=== PATIENT | male | born 1985 | race Caucasian/White ===

== ENCOUNTER 2017-02-24 18:48 | Emergency (ER) | payer MEDICAID ==
--- NOTE | 2017-02-24 19:55 | ED Physician Chart ---
Chief Complaint/HPI - Patient Information Date Seen:: 02/24/17 Time Seen:: 19:15 Chief Complaint:: my right hand wall work right History of Present Illness:: Patient states that he was intoxicated with alcohol and marijuana and methamphetamine when he fell asleep on a bench today. Patient states that he was asleep for an unknown length of time With His arm under his body. When he woke the patient states that his right wrist and hand were weak and he cannot raise them or extend all of his fingers. The patient does not use IV methamphetamine but snorts it. He is homeless and this occurred in a local park. The patient denies headache, chest pain, prior episode of extremity numbness or weakness, IV drug use, fever chills or any other prodromal symptoms. Allergies:: Allergies Allergy/AdvReac Type Severity Reaction Status Date / Time No Known Allergies Allergy Verified 09/12/16 18:09 Vitals:: Vital Signs - 8 hr 02/24/17 19:04 Temp 98.2 F HR 84 RR 16 BP 128/98 O2 Sat % 97 Historian:: Patient Review:: Nurse's Note Reviewed Review of Systems - Review of Systems General/Constitutional: No fever (the entire review of systems is otherwise unremarkable) Past Medical History - Past Medical History Obtainable: Yes Past Medical History: No significant medical hx (drug and alcohol abuse) Social History: Smoker, Alcohol, Illicit Drug Use, Homeless Surgical History: None Medication: None Family Medical History - Family Member Mother History Unknown: Yes Ethnicity: Physical Exam - Physical Examination General/Constitutional: Awake (Physical exam: general: the patient is a 31-year- old thin, unkempt male lying quietly on the gurney in no apparent distress. HEENT exam is unremarkable. The neck is supple with no bruits or stridor. Chest exam is normal. Cardiac exam is entirely normal. There are no murmurs or extra cardiac sounds. Neuro exam: The patient is alert and oriented with normal speech, cognition, and he appears entirely cogent at the time of this exam. The patient's neurological exam is completely normal except for the right upper extremity which has an objective loss of wrist extension and weakness with extension of the digits of the hand. Neurological function is completely intact above the level of the wrist on the right side, and is entirely normal in all of the other extremities. Patient has normal deep tendon reflexes proximally, and there is no discoloration of the extremity nor unusual rashes.) Assessment - Assessment General Assessment: Assessment: #1 suspected right radial nerve compression palsy. We will observe patient in emergency room for progressive improvement. I do not suspect central nervous system pathology at this time. This condition life threatening/high prob of deterioration: No ED Septic Shock - . Is Septic Shock (SBP<90, OR Lactate>4 mmol\\L) present?: No - <6hrs of presentation: Vital Signs: Vital Signs - 8 hr 02/24/17 19:04 Temp 98.2 F HR 84 RR 16 BP 128/98 O2 Sat % 97 Reassessment (Disposition) - Reassessment Reassessment:: Patient was serially reassessed during his 2+ hours in the emergency room and showed a modest but definite improvement in the movement of his right wrist and hand. The patient expressed a desire to spend the night in the emergency room because "it was cold outside" but there is no emergency reason for this to occur. Patient was advised to seek clinic follow-up for persistent problems and to avoid the use of methamphetamine alcohol and marijuana. 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 2)Homelessness. - Aftercare/Follow up Instructions Aftercare/Follow-Up Instructions:: Counseled pt regarding lab results/diagnosis & need follow up ED Discharge Plan - Patient Disposition Admit/Discharge/Transfer: PT DISCHARGED HOME Condition at Disposition: Improved
[2017-02-24 20:19] VITALS: BP 128/98
== END 2017-02-24 21:25 | disposition home or self-care (01) ==
LOC: ER 18:48
DX: G56.31 Lesion of radial nerve, right upper limb (principal); F17.200 Nicotine dependence, unspecified, uncomplicated; Z59.0 Homelessness
CPT/HCPCS: Z7502

== ENCOUNTER 2017-03-10 08:44 | Emergency (ER) | payer MEDICAID ==
--- NOTE | 2017-03-10 09:55 | ED Physician Chart ---
Chief Complaint/HPI - Patient Information Date Seen:: 03/10/17 Time Seen:: 09:45 Chief Complaint:: RT HAND PAIN X History of Present Illness:: This 31-year-old male presents complaining of pain in the right hand. He has been seen previously at this facility with the same complaint. He rates the pain as a 6/10 in severity with no exacerbating or relieving factors. The patient is a very poor historian and it's difficult to get any information at all from him. The patient is also asking for soap and a hot shower. Also requesting hot food. When asked if homeless the patient is unable to elaborate. A review of the patient's chart from 02/24/2017 shows that the patient gave a history of alcohol and methamphetamine use. At that point in time he was complaining of pain in the right upper extremity. It further states that the patient is homeless. Allergies:: Allergies Allergy/AdvReac Type Severity Reaction Status Date / Time No Known Allergies Allergy Verified 03/10/17 09:03 Vitals:: Vital Signs - 8 hr 03/10/17 08:50 Temp 98.6 F HR 86 RR 16 BP 135/79 O2 Sat % 97 Review of Systems - Review of Systems General/Constitutional: No fever, No chills, No diaphoresis, No edema Skin: No skin lesions, No rash Head: No headache, Light headed Eyes: No loss of vision, No diplopia Neck: No neck pain, No stiffness Cardio Vascular: No chest pain Pulmonary: No SOB, No cough GI: No nausea, No vomiting, No diarrhea, No pain G/U: No dysuria, No frequency Musculoskeletal: Bone or joint pain (patient complaining of pain over the fifth metacarpal in his right hand.) Past Medical History - Past Medical History Social History: Alcohol, Illicit Drug Use, Single, Homeless Family Medical History - Family Member Mother History Unknown: Yes Ethnicity: Physical Exam - Physical Examination General/Constitutional: Well-developed, well-nourished, No distress, Ambulatory Head: Atraumatic Eyes: PERRL Skin: No rash, No skin lesions, No ecchymosis ENMT: TM canals nl, Lips, teeth, gums nl, Oropharynx nl, Tonsils nl Neck: Nontender, No JVD Respiratory: Nl effort/Exclusion, Clear to Auscultation, No Wheeze/Rhonchi/Rales Cardio Vascular: RRR, No murmur, gallop, rubs, NL S1 S2 GI: No tenderness/rebounding/guarding, Normal BS's, No McBurney tenderness : No CVA tenderness Extremities: Full ROM Other Extremities comments:: RT HAND EXAM: NO DEFORMITIES OF DIGITS, RIGHT HAND OR WRIST. NORMAL CAPILLARY REFILL. FULL PASSIVE ROM ALL DIGITS. NO SWELLING OR ERYTHEMA. Labs/Radiology/EKG Results - Lab Results Results: 3 VIEWS OF THE RT HAND AND WRIST: NO FRACTURES. NO DISLOCATIONS. NO SOFT TISSUE SWELLING. NO RADIO-OPAQUE FOREIGN BODIES. Assessment - Assessment General Assessment: CASE SUMMARY: this 31-year-old male presented to the emergency department complaining of pain in the right hand and wrist. The patient is sleeping on a gurney and is difficult to arouse. When he is aroused he is unable to provide a coherent history of the present illness. The patient was here on February 24 with a similar complaint after having fallen asleep on a park bench and intoxicated with alcohol and methamphetamine. On physical examination there were no deformities or evidence of acute injury to his right hand or wrist. Circulation was intact any had full range of motion of all joints. An x-ray of the right hand and wrist was negative for any acute trauma. The patient was requesting food and a hot shower. He received both of these. He then abruptly ELOPED from the emergency department prior to any aftercare instructions. Nursing personnel were unable to convince the patient to return for aftercare instructions. MDM DDX PAIN IN THE RIGHT HAND AND WRIST: NOT closed fracture based on exam and X-rays. NOT open fracture based on exam and x-rays. NOT ischemic hand injury based on examination. NOT acute infection based on exam of hand. ED Septic Shock - . Is Septic Shock (SBP<90, OR Lactate>4 mmol\L) present?: No - <6hrs of presentation: Vital Signs: Vital Signs - 8 hr 03/10/17 08:50 Temp 98.6 F HR 86 RR 16 BP 135/79 O2 Sat % 97 Reassessment (Disposition) - Reassessment Reassessment Condition:: Improved (more awake and ran from ED.) - Diagnosis Diagnosis:: POLY-DRUG AND ALCOHOL ABUSE. Pressure neuropathy of the right hand/wrist. - Patient Disposition Discharge/Transfer:: [facility] ED Discharge Plan - Patient Disposition Admit/Discharge/Transfer: PT DISCHARGED HOME Condition at Disposition: Stable Instructions: Hand Contusion, [id number]
--- NOTE | 2017-03-11 10:05 | Diagnostic Imaging Report ---
Right hand (3 views) HISTORY: Pain No acute bony abnormalities. No fractures. Joint spaces appear normal. IMPRESSION: 1. No acute abnormalities In the presence of recent trauma and persistent, a repeat radiograph in 5-7 days may be helpful for detection of a subtle or occult fracture.
== END 2017-03-10 12:20 | disposition home or self-care (01) ==
LOC: ER 08:44
DX: Z59.0 Homelessness (principal); F10.10 Alcohol abuse, uncomplicated; F19.10 Other psychoactive substance abuse, uncomplicated
CPT/HCPCS: 73130-TC-RT; Z7502

== ENCOUNTER 2017-06-24 15:15 | Emergency (ER) | payer MEDICAID ==
--- NOTE | 2017-06-24 15:40 | ED Physician Chart ---
ED Chief Complaint/HPI - Patient Information Date Seen:: 06/24/17 Time Seen:: 15:27 Chief Complaint:: Itchiness and discomfort in both feet for 2 days. History of Present Illness:: Pt walked in with the above complaint. No known injury or trauma to either foot. Pt remains ambulatory without difficulty. No weakness or numbness. Allergies:: Allergies Allergy/AdvReac Type Severity Reaction Status Date / Time No Known Allergies Allergy Verified 03/10/17 09:03 Vitals:: see Nurse Note. Historian:: Patient Family MD/PCP:: Unknown LMP:: N/A Review:: Nurse's Note Reviewed ED Review of Systems - Review of Systems General/Constitutional: No fever, No chills, No weight loss, No weakness, No edema Skin: Rash (in both feet.), No bruising, Other Head: No headache, No light-headedness Eyes: No loss of vision, No pain, No diplopia ENT: No earache, No nasal drainage, No sore throat Neck: No neck pain, No swelling, No stiffness, No mass noted Cardio Vascular: No chest pain, No palpitations, No edema Pulmonary: No SOB, No cough, No wheezing GI: No nausea, No vomiting, No diarrhea, No pain G/U: No dysuria, No frequency, No hematuria Musculoskeletal: No bone or joint pain, No back pain, No muscle pain Endocrine: No polyuria, No polydipsia Psychiatric: No prior psych history Hematopoietic: No bruising, No lymphadenopathy Allergic/Immuno: No urticaria, No angioedema Neurological: No syncope, No focal symptoms, No weakness, No paresthesia, No headache, No confusion ED Past Medical History - Past Medical History Past Medical History: No significant medical hx Family History: None Social History: Smoker (2 cigars daily. Pt has been informed about health risks associated with chronic tobacco use and has been advised to quit. Pt has been encouraged to enroll in a smoking cessation program. Pt acknowledges understanding.), Alcohol (one beer daily. Pt has been informed about health risks associated with chronic alcohol and has been advised to quit. Pt acknowledges understanding.), Illicit Drug Use (Methamphetamine and marijuana with last use yesterday. Pt has been informed about health risks associated with illiicit drug use and has been advised to quit. Pt has been encouraged to enroll in a drug rehab program. Pt acknowledges understanding.), Single Employment:: unemployed. Surgical History: None Family Medical History - Family Member Mother History Unknown: Yes Ethnicity: ED Physical Exam - Physical Examination General/Constitutional: Awake, Well-developed, well-nourished, Alert, No distress, GCS 15, Non-toxic appearing, Ambulatory Other Gen/Cons comments:: Breathes comfortably, speaks clearly, and ambulates without difficulty. Head: Atraumatic Eyes: Lids, conjuctiva normal, PERRL, EOMI Skin: Well hydrated Other Skin comments:: see also Extremities exam. ENMT: External ears, nose nl, Nasal exam nl, Lips, teeth, gums nl, Oropharynx nl Neck: Nontender, Full ROM w/o pain, No nuchal rigidity, No stridor Respiratory: Nl effort/Exclusion, Clear to Auscultation, No Wheeze/Rhonchi/Rales Cardio Vascular: RRR, No murmur, gallop, rubs GI: No tenderness/rebounding/guarding, No organomegaly, Normal BS's, Nondistended Other GI comments:: Abdomen is soft. Other Extremities comments:: Both feet: Nontender. There is a scaly rash noticed in interdigital areas with minimal erythema c/w tinea pedis. No open wound, crepitus, or swelling. FROM of all joints. No detectable motor/sensory/vascular deficit. Good distal capillary refill. Neuro/Psych: Alert/oriented (oriented x 3.), Mood normal, Normal gait, No focal deficits ED Septic Shock - . Is Septic Shock (SBP<90, OR Lactate>4 mmol\L) present?: No ED Reassessment (Disposition) - Reassessment Reassessment:: 1700 Pt remains stable. Pt has been ambulatory without difficulty. Pt requests to leave now. Aftercare instructions have been given. - Diagnosis Diagnosis:: Tinea pedis in both feet. Stable. - Aftercare/Follow up Instructions Aftercare/Follow-Up Instructions:: Refer to Discharge Instructions Notes:: Good hygiene instructions given for foot care. Keep both feet clean and dry. Wear open footwears as directed. F/U with Dr. Garrison or PCP of pt's choice in one day for recheck. Return to ER immediately if condition worsens or if any further questions/problems. Medication Prescribed:: Lotrimin Ultra cream. Applied topically to affected areas in both feet q12h. D- 15 gm R-0 - Patient Disposition Discharge/Transfer:: Home Time:: 17:05 Condition at Disposition:: Stable ED Discharge Plan - Patient Disposition Admit/Discharge/Transfer: PT DISCHARGED HOME Condition at Disposition: Unchanged Instructions: Athlete's Foot, [id number] Additional Instructions: DISCHARGE: Patient given medication reconciliation form and D/C instructions. Patient verbalized understanding. MD discussed with patient the results and treatment provided. Ambulatory with steady gait for discharge to home. Patient in stable condition, ID band removed. Rx of Lotromin Ultra given. Patient educated on pain management. All belongings sent with patient. Accepting Physician: Evangelist Maurer [Active] -
== END 2017-06-24 17:25 | disposition home or self-care (01) ==
LOC: ER 15:15
DX: B35.3 Tinea pedis (principal); F17.200 Nicotine dependence, unspecified, uncomplicated; F12.10 Cannabis abuse, uncomplicated
CPT/HCPCS: Z7502

== ENCOUNTER 2018-04-03 11:53 | Inpatient (IN) | payer MEDICAID ==
[2018-04-03] MEDS ORDERED: cefTRIAXone 1 GM in Sodium Chloride 0.9% 50 ML IV ONE (12:15)
--- NOTE | 2018-04-03 12:20 | ED Physician Chart ---
ED Chief Complaint/HPI - Patient Information Date Seen:: 04/03/18 Time Seen:: 12:00 Chief Complaint:: Leg Pain History of Present Illness:: onset x 3 days of LLE pain, erythema, and swelling; pt's last tetanus shot: < 5 years; UTD; pt denies trauma, H/As, S/T, neck pain, C/P, SOB, Abd. Pain, A/N/V/D /C, chills, or urinary s/s Allergies:: Allergies Allergy/AdvReac Type Severity Reaction Status Date / Time No Known Allergies Allergy Verified 06/24/17 15:45 Vitals:: Vital Signs - 8 hr 04/03/18 12:07 Temp 99.9 F HR 111 RR 18 BP 123/70 O2 Sat % 99 Historian:: Patient Review:: Nurse's Note Reviewed ED Review of Systems - Review of Systems General/Constitutional: Fever, No chills, No weight loss, No weakness, No diaphoresis, No edema, No loss of appetite Skin: Skin lesions, Rash, No bruising Head: No headache, No light-headedness Eyes: No loss of vision, No pain, No diplopia ENT: No earache, No nasal drainage, No sore throat, No tinnitus Neck: No neck pain, No swelling, No thyromegaly, No stiffness, No mass noted Cardio Vascular: No chest pain, No palpitations, No PND, No orthopnea, No edema Pulmonary: No SOB, No cough, No sputum, No wheezing GI: No nausea, No vomiting, No diarrhea, No pain, No melena, No hematochezia, No constipation, No hematemesis G/U: No dysuria, No frequency, No hematuria, No nacturia Musculoskeletal: No bone or joint pain, No back pain, No muscle pain Endocrine: No polyuria, No polydipsia Psychiatric: No prior psych history, No depression, No anxiety, No suicidal ideation, No homicidal ideation, No auditory hallucination, No visual hallucination Hematopoietic: No bruising, No lymphadenopathy Allergic/Immuno: No urticaria, No angioedema Neurological: No syncope, No focal symptoms, No weakness, No paresthesia, No headache, No seizure, No dizziness, No confusion, No vertigo ED Past Medical History - Past Medical History Obtainable: Yes Past Medical History: No significant medical hx Family History: None Social History: Smoker, Alcohol, Illicit Drug Use, Single Surgical History: None Psychiatricy History: None Medication: Reviewed Family Medical History - Family Member Mother History Unknown: Yes Ethnicity: ED Physical Exam - Physical Examination General/Constitutional: Awake, Well-developed, well-nourished, Alert, No distress, GCS 15, Non-toxic appearing, Ambulatory Head: Atraumatic Eyes: Lids, conjuctiva normal, PERRL, EOMI Skin: Nl inspection, No rash, No skin lesions, No ecchymosis, Well hydrated, No lymphadenopathy Other Skin comments:: LLE: + Cellulitis; good NV functions; no FBs ENMT: External ears, nose nl, Nasal exam nl, Lips, teeth, gums nl Neck: Nontender, Full ROM w/o pain, No JVD, No nuchal rigidity, No bruit, No mass, No stridor Respiratory: Nl effort/Exclusion, Clear to Auscultation, No Wheeze/Rhonchi/Rales Cardio Vascular: RRR, No murmur, gallop, rubs, NL S1 S2, Carotid/Femoral/Distal pulses equal bilaterally GI: No tenderness/rebounding/guarding, No organomegaly, No hernia, Normal BS's, Nondistended, No mass/bruits, No McBurney tenderness : No CVA tenderness Extremities: No tenderness or effusion, Full ROM, normal strength in all extremities, No edema, Normal digits & nails Neuro/Psych: Alert/oriented, DTR's symmetric, Normal sensory exam, Normal motor strength, Judgement/insight normal, Mood normal, Normal gait, No focal deficits Misc: Normal back, No paraspinal tenderness ED Labs/Radiology/EKG Results - Lab Results Comments:: WBC: 11.6; K+: 3.4; Na+: 133 - Radiology Results Comments:: NAD - EKG Interpretations EKG Time:: 12:32 Rate & Rhythm: 103; ST Comments:: non-specific st-t changes ED Septic Shock - . Is Septic Shock (SBP<90, OR Lactate>4 mmol\L) present?: No - <6hrs of presentation: Vital Signs: Vital Signs - 8 hr 18 12:07 Temp 99.9 F HR 111 RR 18 BP 123/70 O2 Sat % 99 ED Reassessment (Disposition) - Reassessment Reassessment Condition:: Improved - Diagnosis Diagnosis:: Dx: Leg Pain; Cellulitis; Sepsis; Leukocytosis; Hypokalemia; Hyponatremia; Dehydration; Fever - Aftercare/Follow up Instructions Aftercare/Follow-Up Instructions:: Counseled pt regarding lab results/diagnosis & need follow up, Counseled pt & family regarding lab results/diagnosis & need follow up - Patient Disposition Discharge/Transfer:: Acute Care w/in this hosp Accepting Physician:: Dr. Mcmillan Time Called:: 1400 Time Responded:: 14:00 Admitted to:: Med/Surg Spoke to:: Dr. Mcmillan Admitting Medical Physician:: Dr. Mcmillan Condition at Disposition:: Stable, Improved
[2018-04-03 12:50] LABS: HEMOGLOBIN 14.7 gm/dL (12-16)
[2018-04-03 12:52] LABS: % EOSINOPHILS 0.5 % (0.0-5.0); % LYMPHOCYTES 10.2 % (20.0-50.0); % MONOCYTES 8.7 % (2.0-10.0); % NEUTROPHILS 80.6 % (40.0-80.0); EOSINOPHILE ABSOLUTE 0.1 Th/cmm (0.1-0.4); HEMATOCRIT 42.7 % (41.0-60); LYMPHOCYTE ABSOLUTE 1.2 Th/cmm (1.5-3.0); MEAN CELL VOLUME 90.5 fl (80-99); MEAN CORPUSCULAR HEMOGLOBIN 31.2 pg (26.0-30.0); MEAN CORPUSCULAR HGB CONC 34.4 pg (28.0-36.0); MEAN PLATELET VOLUME 7.2 fl; NEUTROPHILE ABSOLUTE 9.3 Th/cmm (1.8-8.0); PLATELET COUNT 303 Th/cmm (150-400); RED BLOOD COUNT 4.71 Mil/cmm (4.30-5.70); RED CELL DISTRIBUTION WIDTH 11.8 % (11.5-20.0); WHITE BLOOD COUNT 11.6 Th/cmm (4.8-10.8)
[2018-04-03 13:00] LABS: PROTHROMBIN TIME (TEST) 10.4 SECONDS (9.5-11.5)
[2018-04-03 13:04] LABS: ALB/GLOB RATIO 1.3 (1.0-1.8); ALKALINE PHOSPHATASE 88 U/L (34-104); ANION GAP 11.9 (7.0-16.0); BILIRUBIN,TOTAL 0.4 mg/dL (0.3-1.0); BUN - UREA NITROGEN 6 mg/dL (7-25); CALCIUM SERUM 9.1 mg/dL (8.6-10.3); CARBON DIOXIDE 23.5 mEq/L (21.0-31.0); CHLORIDE 101 mEq/L (98-107); CREATININE - SERUM 0.8 mg/dL (0.7-1.3); CREATININE KINASE 71 U/L (30-223); GFR AFRICAN-AMERICAN > 60.0 ml/min (>90); GFR NON AFRICAN-AMERICAN > 60.0 ml/min; GLUCOSE 149 mg/dL (70-105); POTASSIUM SERUM 3.4 mEq/L (3.5-5.1); SGOT 13 U/L (13-39); SGPT/ALT 14 U/L (7-52); SODIUM SERUM 133 mEq/L (136-145); TOTAL PROTEIN,SERUM 7.2 gm/dL (6.0-8.3)
[2018-04-03] MEDS ORDERED: Potassium Chloride 20 mEq ER Tab PO ONE ×2 (14:08→16:28)
[2018-04-03 16:17] LABS: URINE MICROSCOPIC INDICATED? YES; URINE SOURCE MIDSTREAM
[2018-04-03 16:20] LABS: URINE BLOOD NEGATIVE (NEGATIVE); URINE GLUCOSE (UA) NEGATIVE (NEGATIVE); URINE KETONE 15 mg/dL (NEGATIVE); URINE LEUKOCYTE ESTERASE NEGATIVE (NEGATIVE); URINE NITRATE NEGATIVE (NEGATIVE); URINE PROTEIN 30 mg/dL (NEGATIVE)
[2018-04-03 16:32] LABS: URINE BILIRUBIN NEGATIVE (NEGATIVE); URINE CLARITY CLEAR (CLEAR); URINE COLOR ORANGE
[2018-04-03 16:33] LABS: URINE BACTERIA NONE SEEN /hpf (NONE SEEN); URINE EPITHELIAL CELLS RARE /lpf (FEW); URINE WBC 0-2 /hpf (0-5)
[2018-04-03] MEDS ORDERED: Magnesium Hydroxide (MOM) 30 mL UDC PO PRN (22:56)
[2018-04-03] MEDS ORDERED: Morphine Sulfate 2 mg/mL 1mL Syr IVP PRN (22:56)
[2018-04-04] MEDS: D5-0.9%NS 1,000 ML IV SCH ×2 (01:55→12:45)
[2018-04-04 06:09] LABS: % BASOPHILS 1.3 % (0.0-2.0); % EOSINOPHILS 0.7 % (0.0-5.0); % MONOCYTES 14.7 % (2.0-10.0); % NEUTROPHILS 61.3 % (40.0-80.0); BASOPHILE ABSOLUTE 0.1 Th/cumm (0-0.2); EOSINOPHILE ABSOLUTE 0.1 Th/cmm (0.1-0.4); HEMATOCRIT 40.6 % (41.0-60); HEMOGLOBIN 13.6 gm/dL (12-16); LYMPHOCYTE ABSOLUTE 2.4 Th/cmm (1.5-3.0); MEAN CELL VOLUME 91.3 fl (80-99); MEAN CORPUSCULAR HEMOGLOBIN 30.7 pg (26.0-30.0); MEAN CORPUSCULAR HGB CONC 33.6 pg (28.0-36.0); MEAN PLATELET VOLUME 7.4 fl; MONOCYTE ABSOLUTE 1.6 Th/cmm (0.3-1.0); NEUTROPHILE ABSOLUTE 6.5 Th/cmm (1.8-8.0); PLATELET COUNT 254 Th/cmm (150-400); RED BLOOD COUNT 4.44 Mil/cmm (4.30-5.70); RED CELL DISTRIBUTION WIDTH 12.2 % (11.5-20.0); WHITE BLOOD COUNT 10.7 Th/cmm (4.8-10.8)
[2018-04-04 06:20] LABS: ALB/GLOB RATIO 1.1 (1.0-1.8); ALBUMIN 3.3 gm/dL (4.2-5.5); ALKALINE PHOSPHATASE 72 U/L (34-104); ANION GAP 9.8 (7.0-16.0); BILIRUBIN,TOTAL 0.3 mg/dL (0.3-1.0); BUN - UREA NITROGEN 6 mg/dL (7-25); CALCIUM SERUM 8.7 mg/dL (8.6-10.3); CARBON DIOXIDE 22.5 mEq/L (21.0-31.0); CHLORIDE 107 mEq/L (98-107); CREATININE - SERUM 0.9 mg/dL (0.7-1.3); GFR AFRICAN-AMERICAN > 60.0 ml/min (>90); GFR NON AFRICAN-AMERICAN > 60.0 ml/min; GLUCOSE 125 mg/dL (70-105); POTASSIUM SERUM 3.3 mEq/L (3.5-5.1); SGOT 10 U/L (13-39); SGPT/ALT 11 U/L (7-52); SODIUM SERUM 136 mEq/L (136-145); TOTAL PROTEIN,SERUM 6.3 gm/dL (6.0-8.3)
--- NOTE | 2018-04-04 07:49 | Diagnostic Imaging Report ---
Bilateral lower extremity Doppler arterial ultrasound exam HISTORY: Pain Sonographic sector images were obtained through the arterial system of the lower legs. Associated Doppler data was obtained. The exam of the right leg demonstrates normal triphasic waveforms within the common femoral, superficial femoral, popliteal, anterior tibial, posterior tibial, and dorsalis pedis arteries. No significant focal atherosclerotic plaque is seen. Slight decrease in velocity noted within the distal portion of the superficial femoral artery of doubtful significance. Right ankle brachial index is normal (1.4). The exam of the left leg demonstrates triphasic waveforms throughout the arterial system. No significant focal atherosclerotic plaque is seen. The left ankle-brachial index is normal (1.2). IMPRESSION: 1. No evidence of hemodynamically significant atherosclerotic vascular disease.
--- NOTE | 2018-04-04 08:38 | Diagnostic Imaging Report ---
Bilateral lower extremity Doppler venous ultrasound exam HISTORY: Pain/swelling Sonographic sector images were obtained through the deep venous systems of both legs. Associated Doppler data was obtained. The exam demonstrates patency of the common femoral, superficial femoral, popliteal, and posterior tibial veins bilaterally. Specifically, no thrombus is seen. There are normal compressibility and augmentation responses. IMPRESSION: Negative exam for deep vein thrombophlebitis.
[2018-04-04] MEDS: Vancomycin HCl 1.5 GM in Sodium Chloride 0.9% 500 ML IV SCH ×2 (12:42→22:27)
--- NOTE | 2018-04-04 12:53 | History & Physical ---
ADMIT DATE: 04/04/2018 PATIENT'S IDENTIFICATION: A 32-year-old male. CHIEF COMPLAINT: Left leg pain. HISTORY OF PRESENT ILLNESS: A 32-year-old [place] male who is homeless for last few months, has been using street drugs, which includes heroin and also smoke cigarette, drink alcohol, presented to Emergency Room for left leg swelling and pain for the last 3 days in duration. The patient was evaluated and subsequently admitted in the hospital for further treatment. PAST MEDICAL HISTORY: None. MEDICATIONS AT HOME: None. ALLERGIES: None. SOCIAL HISTORY: He is homeless. He has polysubstance abuse. FAMILY MEDICAL HISTORY: Unknown. REVIEW OF SYSTEMS: The patient denies any headache, blurred vision, double vision, dysphagia, odynophagia, runny nose, stuffy nose, fever, chills, cough, chest pain, shortness of breath, palpitation, dizziness, nausea, vomiting, diarrhea, dysuria, hematuria, hematochezia, melena. No seizure or syncopal episode. PHYSICAL EXAMINATION: GENERAL: The patient is alert, awake, oriented, lying in the bed. VITAL SIGNS: Temperature 99.9, pulse is 111, respiratory rate is 18, blood pressure 123/70. HEENT: Normocephalic, atraumatic. Extraocular muscles are intact. Tongue was pink and coated. No oral lesion, no exudate. NECK: Supple, no JVD, no hepatojugular reflex. No lymphadenopathy, thyromegaly, or carotid bruit. HEART: Both heart sounds are regular. No S3, no S4, no murmur. CHEST AND LUNGS: Equal in expansion, no wheezing, no crackles. ABDOMEN: Soft. No guarding or rigidity. Liver and spleen not palpable. No palpable mass. EXTREMITIES: Left leg swelling noted extending from ankle area all the way to the thigh area with erythema noted. No calf tenderness noted. Multiple cuts also noted as well. NEUROLOGIC: Nonfocal. AVAILABLE DIAGNOSTIC DATA: Has been reviewed. CLINICAL IMPRESSION: 1. Left leg cellulitis. 2. Polysubstance abuse. 3. Homelessness. PLAN: 1. Admit this patient to Med/Surg floor. 2. IV antibiotic. 3. Pain management. 4. Watch for withdrawal. 5. Infectious Disease consultation. 6. Blood cultures. 7. Follow lab. 8. Follow consult recommendation. 9. Care plan reviewed and discussed with staff. JOB# [id number]
[2018-04-04 13:23] LABS: AMPHETAMINE URINE POSITIVE (NEGATIVE); BARBITURATES URINE NEGATIVE (NEGATIVE); BENZODIAZEPINES QUAL URINE NEGATIVE (NEGATIVE); CANNABINOID THC NEGATIVE (NEGATIVE); COCAINE METABOLITE QUAL URINE NEGATIVE (NEGATIVE); METHADONE URINE NEGATIVE (NEGATIVE); METHAMPHETAMINES QUAL URINE POSITIVE (NEGATIVE); OPIATES (MORPHINE) QUAL. URINE NEGATIVE (NEGATIVE); PHENCYCLIDINE (PCP) URINE NEGATIVE (NEGATIVE); TRICYCLICS (TCA) QUAL. URINE NEGATIVE (NEGATIVE)
--- NOTE | 2018-04-04 20:38 | Consultation ---
DATE OF CONSULTATION: 04/04/2018 INFECTIOUS DISEASE CONSULTATION REFERRING PHYSICIAN: Lukas Mcmillan M.D. REASON FOR CONSULTATION: Cellulitis of the left leg. HISTORY OF PRESENT ILLNESS: The patient is a 32-year-old male with no significant past medical history, presented to the ER for swelling and redness of the left lower extremity. On initial evaluation, the patient's temperature was 99.9 degrees Fahrenheit and it went up to 100.1 degrees Fahrenheit and WBC count was 11,600. Antibiotic murphy, vancomycin and Zosyn were started and ID consult was called for antibiotic management. The patient has no open ulcer. The patient denies any trauma. PAST MEDICAL HISTORY: None significant. ALLERGIES: NKDA. MEDICATIONS: As per medication reconciliation sheet. Antibiotic murphy, the patient is receiving vancomycin and Zosyn. SOCIAL HISTORY: The patient lives at home. He is an active smoker and drinks alcohol on a regular basis. The patient also takes methamphetamine. Denies any IV drug abuse. FAMILY HISTORY: Not contributory. PSYCHIATRIC HISTORY: The patient has a history of depression. REVIEW OF SYSTEMS: GENERAL: The patient denies any fever or chills. HEENT: No diplopia. No photophobia. No sore throat. RESPIRATORY: No cough. No shortness of breath. CARDIOVASCULAR: No chest pain or palpitation. GASTROINTESTINAL: No nausea. No vomiting. No diarrhea. No constipation. GENITOURINARY: No dysuria. NEUROLOGIC: No headache. No dizziness. No focal weakness. SKIN: The patient has swelling and redness of the left leg. CENTRAL NERVOUS SYSTEM: No headache. No dizziness. No focal weakness. PHYSICAL EXAMINATION: CURRENT VITAL SIGNS: Temperature is 98.9 degrees Fahrenheit, T-max is 100.1 degrees Fahrenheit, pulse 93, respirations 18, blood pressure 115/69. GENERAL: The patient is comfortable. HEENT: Head is normocephalic, atraumatic. Oral cavity moist. [place] tongue. NECK: Supple. No JVD. No carotid bruit. Trachea in midline. CHEST: Bilateral vesicular breath sounds. No crackles or wheezing. HEART: S1, S2 within normal limits. Regular rhythm. No murmur. No gallop. ABDOMEN: Soft, nontender, nondistended. Bowel sounds present. EXTREMITIES: No cyanosis. No clubbing. Left leg has swelling and erythema. No significant tenderness. No discharge. No ulcers. PARAPROFESSIONAL INTERPRETER: Alert, awake, oriented x 3. LABORATORY DATA: Current labs show WBC 10,700, hemoglobin 13.6, hematocrit 40.6, platelets are 254,000, neutrophils 61%. Sodium 136, potassium 3.3, chloride 107, bicarbonate is 22.5, BUN is 6, creatinine 0.9, glucose is 125. Lactic acid 1.29. Urinalysis shows wbc 0-2 and bacteria none. Ethyl alcohol negative. HIV antibody is negative. RADIOLOGY: Left lower extremity ultrasound showed no evidence of DVT. Arterial study showed no evidence of any atherosclerotic vascular disease. IMPRESSION: 1. Cellulitis of the left leg. 2. Leukocytosis, improved. 3. History of depression, stable. 4. History of smoking. 5. History of alcohol use. 6. History of methamphetamine use. RECOMMENDATIONS AND PLAN: Continue vancomycin and Zosyn. If the patient's condition remains stable and improves, may discharge the patient on clindamycin and levofloxacin p.o. for 10 days. Anticipate discharge in 1-2 days from now. Thank you, Dr. Mcmillan for involving me in taking care of this patient. JOB# [id number] GERTRUDIS
[2018-04-05 06:33] LABS: % BASOPHILS 0.4 % (0.0-2.0); % LYMPHOCYTES 29.9 % (20.0-50.0); % MONOCYTES 15.3 % (2.0-10.0); % NEUTROPHILS 52.4 % (40.0-80.0); EOSINOPHILE ABSOLUTE 0.2 Th/cmm (0.1-0.4); HEMATOCRIT 38.7 % (41.0-60); HEMOGLOBIN 13.1 gm/dL (12-16); LYMPHOCYTE ABSOLUTE 2.7 Th/cmm (1.5-3.0); MEAN CELL VOLUME 91.5 fl (80-99); MEAN CORPUSCULAR HGB CONC 33.9 pg (28.0-36.0); MEAN PLATELET VOLUME 7.7 fl; MONOCYTE ABSOLUTE 1.4 Th/cmm (0.3-1.0); NEUTROPHILE ABSOLUTE 4.7 Th/cmm (1.8-8.0); PLATELET COUNT 267 Th/cmm (150-400); RED BLOOD COUNT 4.23 Mil/cmm (4.30-5.70)
[2018-04-05 06:37] LABS: ALB/GLOB RATIO 1.1 (1.0-1.8); ALBUMIN 3.1 gm/dL (4.2-5.5); ALKALINE PHOSPHATASE 63 U/L (34-104); ANION GAP 9.7 (7.0-16.0); BILIRUBIN,TOTAL 0.2 mg/dL (0.3-1.0); BUN - UREA NITROGEN 5 mg/dL (7-25); CALCIUM SERUM 8.6 mg/dL (8.6-10.3); CARBON DIOXIDE 22.9 mEq/L (21.0-31.0); CHLORIDE 109 mEq/L (98-107); CREATININE - SERUM 0.8 mg/dL (0.7-1.3); GFR AFRICAN-AMERICAN > 60.0 ml/min (>90); GFR NON AFRICAN-AMERICAN > 60.0 ml/min; GLUCOSE 100 mg/dL (70-105); POTASSIUM SERUM 3.6 mEq/L (3.5-5.1); SGOT 10 U/L (13-39); SGPT/ALT 11 U/L (7-52); SODIUM SERUM 138 mEq/L (136-145)
[2018-04-05 12:13] LABS: HEP A AB IGM Negative (Negative); HEP B CORE IGM Negative (Negative); HEP B SURFACE AG QL Negative (Negative); HEP C ANTIBODY <0.1 s/co ratio (0.0-0.9)
[2018-04-05] MEDS: Vancomycin HCl 1.5 GM in Sodium Chloride 0.9% 500 ML IV SCH ×2 (12:29→21:56)
--- NOTE | 2018-04-05 12:49 | Infectious Disease Prog Note ---
Infectious Disease Subjective - Review of Systems Service Date: 04/05/18 Subjective: Still complains of the left leg pain. Infectious Disease Objective - Results Result Diagrams: 04/05/18 05:10 04/05/18 05:10 Recent Labs: Laboratory Last Values WBC 9.0 Th/cmm (4.8-10.8) 04/05/18 05:10 RBC 4.23 Mil/cmm (4.30-5.70) L 04/05/18 05:10 Hgb 13.1 gm/dL (12-16) 04/05/18 05:10 Hct 38.7 % (41.0-60) L 04/05/18 05:10 MCV 91.5 fl (80-99) 04/05/18 05:10 MCH 31.0 pg (26.0-30.0) H 04/05/18 05:10 MCHC Differential 33.9 pg (28.0-36.0) 04/05/18 05:10 RDW 12.0 % (11.5-20.0) 04/05/18 05:10 Plt Count 267 Th/cmm (150-400) 04/05/18 05:10 MPV 7.7 fl 04/05/18 05:10 Neutrophils % 52.4 % (40.0-80.0) 04/05/18 05:10 Lymphocytes % 29.9 % (20.0-50.0) 04/05/18 05:10 Monocytes % 15.3 % (2.0-10.0) H 04/05/18 05:10 Eosinophils % 2.0 % (0.0-5.0) 04/05/18 05:10 Basophils % 0.4 % (0.0-2.0) 04/05/18 05:10 PT 10.4 SECONDS (9.5-11.5) 04/03/18 12:27 INR 1.00 (0.5-1.4) 04/03/18 12:27 PTT (Actin FS) 29.6 SECONDS (26.0-38.0) 04/03/18 12:27 Sodium 138 mEq/L (136-145) 04/05/18 05:10 Potassium 3.6 mEq/L (3.5-5.1) 04/05/18 05:10 Chloride 109 mEq/L (98-107) H 04/05/18 05:10 Carbon Dioxide 22.9 mEq/L (21.0-31.0) 04/05/18 05:10 Anion Gap 9.7 (7.0-16.0) 04/05/18 05:10 BUN 5 mg/dL (7-25) L 04/05/18 05:10 Creatinine 0.8 mg/dL (0.7-1.3) 04/05/18 05:10 Est GFR ( Amer) > 60.0 ml/min (>90) 04/05/18 05:10 Est GFR (Non-Af Amer) > 60.0 ml/min 04/05/18 05:10 BUN/Creatinine Ratio 6.3 04/05/18 05:10 Glucose 100 mg/dL (70-105) 04/05/18 05:10 Whole Bld Lactic Acid 1.29 mmol/L (0.60-1.99) 04/03/18 12:27 Calcium 8.6 mg/dL (8.6-10.3) 04/05/18 05:10 Magnesium 2.0 mg/dL (1.9-2.7) 04/04/18 05:30 Total Bilirubin 0.2 mg/dL (0.3-1.0) L 04/05/18 05:10 AST 10 U/L (13-39) L 04/05/18 05:10 ALT 11 U/L (7-52) 04/05/18 05:10 Alkaline Phosphatase 63 U/L (34-104) 04/05/18 05:10 Creatine Kinase 71 U/L (30-223) 04/03/18 12:27 Troponin I < 0.01 ng/mL (0.01-0.05) L 04/03/18 12:27 Total Protein 6.0 gm/dL (6.0-8.3) 04/05/18 05:10 Albumin 3.1 gm/dL (4.2-5.5) L 04/05/18 05:10 Globulin 2.9 gm/dL 04/05/18 05:10 Albumin/Globulin Ratio 1.1 (1.0-1.8) 04/05/18 05:10 Urine Source MIDSTREAM 04/03/18 16:10 Urine Color ORANGE 04/03/18 16:10 Urine Clarity CLEAR (CLEAR) 04/03/18 16:10 Urine pH 6.0 (4.6 - 8.0) 04/03/18 16:10 Ur Specific [place] 1.025 (1.005-1.030) 04/03/18 16:10 Urine Protein 30 mg/dL (NEGATIVE) H 04/03/18 16:10 Urine Glucose (UA) NEGATIVE mg/dL (NEGATIVE) 04/03/18 16:10 Urine Ketones 15 mg/dL (NEGATIVE) H 04/03/18 16:10 Urine Blood NEGATIVE (NEGATIVE) 04/03/18 16:10 Urine Nitrate NEGATIVE (NEGATIVE) 04/03/18 16:10 Urine Bilirubin NEGATIVE (NEGATIVE) 04/03/18 16:10 Urine Urobilinogen 4.0 E.U./dL (0.2 - 1.0) H 04/03/18 16:10 Ur Leukocyte Esterase NEGATIVE (NEGATIVE) 04/03/18 16:10 Urine RBC 2-5 /hpf (0-5) H 04/03/18 16:10 Urine WBC 0-2 /hpf (0-5) 04/03/18 16:10 Ur Epithelial Cells RARE /lpf (FEW) 04/03/18 16:10 Urine Bacteria NONE SEEN /hpf (NONE SEEN) 04/03/18 16:10 Urine Mucus MODERATE /lpf (FEW) 04/03/18 16:10 Vancomycin Trough 6.1 ug/mL (5-10) 04/05/18 10:35 Urine Opiates Screen NEGATIVE (NEGATIVE) 04/04/18 12:59 Urine Methadone Screen NEGATIVE (NEGATIVE) 04/04/18 12:59 Ur Barbiturates Screen NEGATIVE (NEGATIVE) 04/04/18 12:59 Ur Tricyclics Screen NEGATIVE (NEGATIVE) 04/04/18 12:59 Ur Phencyclidine Scrn NEGATIVE (NEGATIVE) 04/04/18 12:59 Amphetamines Screen POSITIVE (NEGATIVE) H 04/04/18 12:59 U Methamphetamines Scrn POSITIVE (NEGATIVE) H 04/04/18 12:59 U Benzodiazepines Scrn NEGATIVE (NEGATIVE) 04/04/18 12:59 U Cocaine Metab Screen NEGATIVE (NEGATIVE) 04/04/18 12:59 U Cannabinoids Screen NEGATIVE (NEGATIVE) 04/04/18 12:59 Ethyl Alcohol < 10 mg/dL (0-10) 04/03/18 12:27 Hepatitis A IgM Ab Negative (Negative) 04/03/18 12:27 Hep Bs Antigen Negative (Negative) 04/03/18 12:27 Hep B Core IgM Ab Negative (Negative) 04/03/18 12:27 Hepatitis C Antibody <0.1 s/co ratio (0.0-0.9) 04/03/18 12:27 HIV 1&2 Antibody Screen NEGATIVE (NEG) 04/03/18 12:27 - Physical Exam Vitals and I&O: Vital Signs Temp 97.8 F 04/05/18 12:00 Pulse 80 04/05/18 12:00 Resp 18 04/05/18 12:00 BP 100/51 04/05/18 12:00 Pulse Ox 97 04/05/18 12:00 Intake & Output 04/04/18 04/05/18 04/05/18 18:59 06:59 18:59 Intake Total 1800 700 Balance 1800 700 Intake: Intake, IV Amount 1800 700 D5-0.9%Ns 1,000 ml @ 100 1000 mls/hr IV .Q10H [facility] Rx#: [id number] Piperacillin Sodium/ 300 200 Tazobact 4.5 gm In Sodium Chloride 0.9% 100 ml @ 100 mls/hr IV Q6HR [facility] Rx #:[id number] Vancomycin HCl 1.5 gm In 500 500 Sodium Chloride 0.9% 500 ml @ 250 mls/hr IV Q12H [facility] Rx#:[id number] Active Medications: Current Medications Acetaminophen (Tylenol) 650 mg PO Q6H PRN PRN Reason: Mild Pain/Headache/T above 101 Stop: 06/02/18 22:55 Dextrose/Sodium Chloride (D5-0.9%Ns) 1,000 mls @ 100 mls/hr IV .Q10H [facility] Stop: 06/02/18 22:59 Last Admin: 04/04/18 12:45 Dose: 100 mls/hr Piperacillin Sod/Tazobactam (Sod 4.5 gm/ Sodium Chloride) 100 mls @ 100 mls/hr IV Q6HR [facility] Stop: 06/03/18 00:00 Last Admin: 04/05/18 11:48 Dose: 100 mls/hr Vancomycin HCl 1.5 gm/ Sodium (Chloride) 500 mls @ 250 mls/hr IV Q12H [facility] Stop: 04/05/18 16:00 Last Admin: 04/05/18 12:29 Dose: 250 mls/hr Vancomycin HCl 1.5 gm/ Sodium (Chloride) 500 mls @ 250 mls/hr IV Q8H [facility] Stop: 06/04/18 19:59 Lorazepam (Ativan) 1 mg PO Q6H PRN; Protocol PRN Reason: Anxiety/Agitation Stop: 06/02/18 22:55 Magnesium Hydroxide (Milk Of Magnesia) 30 ml PO HS PRN PRN Reason: Constipation Stop: 06/02/18 22:55 Miscellaneous (Vancomycin Iv Per Pharmacy) 1 ea [facility] PRN PRN PRN Reason: PROTOCOL Stop: 06/02/18 22:58 Morphine Sulfate (Morphine) 2 mg IVP Q4H PRN PRN Reason: Severe Pain Stop: 06/02/18 22:55 Ondansetron HCl (Zofran) 4 mg IVP Q6H PRN PRN Reason: Nausea / Vomiting Stop: 06/02/18 22:55 Temazepam (Restoril) 15 mg PO HS PRN; Protocol PRN Reason: Insomnia Stop: 06/02/18 22:55 General: no acute distress, well developed, well nourished HEENT: atraumatic, normocephalic, PERRLA, EOMI Neck: supple, no thyromegaly Cardiovascular: S1S2, regular Lungs: clear to auscultation bilaterally, clear to percussion Abdomen: soft, no tender, no distended Extremities: other (Left leg redness.), no cyanosis, no clubbing, no edema Neurological: awake, alert, oriented Skin: intact Infectious Disease Assmt/Plan - Assessment Assessment: 1. Left leg cellulitis. - Plan Plan: Continue vanco IV and zosyn IV. may change abx to po clindamycin and levaquion po for 10 days on discharge..
[2018-04-05] MEDS: D5-0.9%NS 1,000 ML IV SCH (22:34)
--- NOTE | 2018-04-06 00:08 | Progress Notes ---
DATE: 04/05/2018 PATIENT'S IDENTIFICATION: A 32-year-old male. SUBJECTIVE: The patient was seen and examined. The patient has no new complaint. The patient has been seen by Infectious Disease, currently on IV antibiotic. OBJECTIVE: On exam, VITAL SIGNS: See nurse's note. HEENT: Poor dentition. NECK: Supple, no JVD. HEART: Regular. CHEST AND LUNG: Equal in expansion. No wheezing, no crackles. ABDOMEN: Soft. EXTREMITIES: Resolving swelling and erythema of the left leg noted. AVAILABLE DIAGNOSTIC DATA: Has been reviewed. CLINICAL IMPRESSION: 1. Left leg cellulitis, currently on intravenous antibiotic. Blood cultures so far are negative. 2. Polysubstance abuse history. 3. Depression by history. Not suicidal or homicidal. PLAN: Continue antibiotic for now and we will see how he does tomorrow if stable. The patient will be switched to p.o. antibiotic and discharge this patient to home, anti-depression medication offered, which the patient declined. JOB# [id number]
[2018-04-06] MEDS: Vancomycin HCl 1.5 GM in Sodium Chloride 0.9% 500 ML IV SCH ×2 (04:02→12:00)
--- NOTE | 2018-04-06 17:28 | Progress Notes ---
DATE: 04/06/2018 IDENTIFICATION: A 32-year-old male patient. CHIEF COMPLAINT: "I am fine." SUBJECTIVE: The patient denies any chest pain, shortness of breath, palpitation, dizziness, nausea, vomiting, diarrhea. PHYSICAL EXAMINATION: VITAL SIGNS: See nurse's note. HEENT: No facial asymmetry. NECK: Supple, no JVD. HEART: Regular. CHEST: Equal in expansion, no wheezing, no crackles. ABDOMEN: Soft. No guarding or rigidity. Bowel sounds present. No palpable mass. EXTREMITIES: No edema. Significant decreased swelling involving the left foot noted. CLINICAL IMPRESSION: 1. Left lower extremity cellulitis, significant improvement. 2. Polysubstance abuse. 3. Depression. PLAN: The patient is not suicidal or homicidal. The patient's cellulitis is significantly improved. The patient will be discharged on p.o. Levaquin and clindamycin. JOB# [id number]
== END 2018-04-06 13:35 | disposition home or self-care (01) | DRG 720 ==
LOC: ER 11:53 → MSI 16:30
PROVIDERS: ADMIT Internal Medicine; ATTEND Internal Medicine
DX: A41.9 Sepsis, unspecified organism (principal); E87.1 Hypo-osmolality and hyponatremia; L03.116 Cellulitis of left lower limb; F17.210 Nicotine dependence, cigarettes, uncomplicated; F19.90 Other psychoactive substance use, unspecified, uncomplicated; E87.6 Hypokalemia; E86.0 Dehydration; F32.9 Major depressive disorder, single episode, unspecified; Z59.0 Homelessness
CPT/HCPCS: 36415-UA; 80053-TC; 80074-90; 80202-TC; 80307; 80320-TC; 81001-TC; 82550-TC; 83605; 83735-TC; 84484-TC; 85025-TC; 85610-TC; 85730-TC; 86703-TC; 93005; 93925-TC; 93970-TC-50; J0696; J2543; J3370; J7040; J7042

== ENCOUNTER 2018-04-19 23:10 | Emergency (ER) | payer MEDICAID ==
--- NOTE | 2018-04-20 00:04 | ED Physician Chart ---
ED Chief Complaint/HPI - Patient Information Date Seen:: 04/19/18 Time Seen:: 23:59 Chief Complaint:: lt leg cellulitis History of Present Illness:: 32 yr old male with reddness lt leg previously evaluated here in ER GIVEN CLINDAMYCIN TAKING ONE PILL A DAY INSIDE OF THREE PAIN REDDNESS PT NOT CLEANING IT WELL TAKING MEDS AND HOMELESS Allergies:: Allergies Allergy/AdvReac Type Severity Reaction Status Date / Time No Known Allergies Allergy Verified 04/19/18 23:24 Vitals:: Vital Signs - 8 hr 04/19/18 23:15 Temp 98.1 F HR 86 RR 18 BP 121/65 O2 Sat % 96 ED Review of Systems - Review of Systems General/Constitutional: No fever, No chills, No weight loss, No weakness, No diaphoresis, No edema, No loss of appetite Skin: No skin lesions, No rash, No bruising Head: No headache, No light-headedness Eyes: No loss of vision, No pain, No diplopia ENT: No earache, No nasal drainage, No sore throat, No tinnitus Neck: No neck pain, No swelling, No thyromegaly, No stiffness, No mass noted Cardio Vascular: No chest pain, No palpitations, No PND, No orthopnea, No edema Pulmonary: No SOB, No cough, No sputum, No wheezing GI: No nausea, No vomiting, No diarrhea, No pain, No melena, No hematochezia, No constipation, No hematemesis G/U: No dysuria, No frequency, No hematuria Musculoskeletal: No bone or joint pain, No back pain, No muscle pain Endocrine: No polyuria, No polydipsia Psychiatric: No prior psych history, No depression, No anxiety, No suicidal ideation Hematopoietic: No bruising, No lymphadenopathy Allergic/Immuno: No urticaria, No angioedema Neurological: No syncope, No focal symptoms, No weakness, No paresthesia, No headache, No seizure, No dizziness, No confusion, No vertigo ED Past Medical History - Past Medical History Past Medical History: No significant medical hx Family Medical History - Family Member Mother History Unknown: Yes Ethnicity: Non- Hx Family Cancer: No Hx Family Coronary Artery Disease: No Hx Family Congestive Heart Failure: No Hx Family Hypertension: No Hx Family Stroke: No Hx Family Diabetes: No Hx Family Seizures: No Hx Family Dementia: No Hx Family AIDS: No Hx Family HIV: No Hx Family COPD: No Hx Family Hepatitis: No Hx Family Psychiatric Problems: Yes Hx Family Tuberculosis: No ED Physical Exam - Physical Examination General/Constitutional: Awake, Well-developed, well-nourished, Alert, No distress, GCS 15, Non-toxic appearing, Ambulatory Head: Atraumatic Eyes: Lids, conjuctiva normal, PERRL, EOMI Skin: Nl inspection, No rash, No skin lesions, No ecchymosis, Well hydrated, No lymphadenopathy ENMT: External ears, nose nl, Nasal exam nl, Lips, teeth, gums nl Neck: Nontender, Full ROM w/o pain, No JVD, No nuchal rigidity, No bruit, No mass, No stridor Respiratory: Nl effort/Exclusion, Clear to Auscultation, No Wheeze/Rhonchi/Rales Cardio Vascular: RRR, No murmur, gallop, rubs, NL S1 S2 GI: No tenderness/rebounding/guarding, No organomegaly, No hernia, Normal BS's, Nondistended, No mass/bruits, No McBurney tenderness : No CVA tenderness Extremities: No tenderness or effusion, Full ROM, normal strength in all extremities, No edema, Normal digits & nails Neuro/Psych: Alert/oriented, DTR's symmetric, Normal sensory exam, Normal motor strength, Judgement/insight normal, Mood normal, Normal gait, No focal deficits Misc: Normal back, No paraspinal tenderness ED Assessment - Assessment General Assessment: CELLULITIS LT LEG ED Septic Shock - . Is Septic Shock (SBP<90, OR Lactate>4 mmol\L) present?: No - <6hrs of presentation: Vital Signs: Vital Signs - 8 hr 04/19/18 23:15 Temp 98.1 F HR 86 RR 18 BP 121/65 O2 Sat % 96 ED Discharge Plan - Patient Disposition Condition at Disposition: Stable
== END 2018-04-20 01:10 | disposition home or self-care (01) ==
LOC: ER 23:10
DX: L03.116 Cellulitis of left lower limb (principal); Z59.0 Homelessness
CPT/HCPCS: 99283; 96372; J0696; Z7502

== ENCOUNTER 2018-06-10 07:06 | Inpatient (IN) | payer MEDICAID ==
--- NOTE | 2018-06-10 07:36 | ED Physician Chart ---
ED Chief Complaint/HPI - Patient Information Date Seen:: 06/10/18 Time Seen:: 07:27 Chief Complaint:: lt leg reddness History of Present Illness:: 22 yr old male with reddness lt leg for 2 days homeless had blisters lt leg now all red and inflammed hx of same before pt states uses meth regularly and was in [facility] for 6mos denies medical problems no meds no allergies Allergies:: Allergies Allergy/AdvReac Type Severity Reaction Status Date / Time No Known Allergies Allergy Verified 02/24/17 18:53 Vitals:: Vital Signs - 8 hr 06/10/18 07:18 Temp 98.4 F HR 99 RR 15 BP 121/75 O2 Sat % 97 ED Review of Systems - Review of Systems General/Constitutional: No fever, No chills, No weight loss, No weakness, No diaphoresis, No edema, No loss of appetite Skin: Other (reddness blisters lt lower leg) Head: No headache, No light-headedness Eyes: No loss of vision, No pain, No diplopia ENT: No earache, No nasal drainage, No sore throat, No tinnitus Neck: No neck pain, No swelling, No thyromegaly, No stiffness, No mass noted Cardio Vascular: No chest pain, No palpitations, No PND, No orthopnea, No edema Pulmonary: No SOB, No cough, No sputum, No wheezing GI: No nausea, No vomiting, No diarrhea, No pain, No melena, No hematochezia, No constipation, No hematemesis G/U: No dysuria, No frequency, No hematuria Musculoskeletal: No bone or joint pain, No back pain, No muscle pain Endocrine: No polyuria, No polydipsia Psychiatric: No prior psych history, No depression, No anxiety, No suicidal ideation Hematopoietic: No bruising, No lymphadenopathy Allergic/Immuno: No urticaria, No angioedema Neurological: No syncope, No focal symptoms, No weakness, No paresthesia, No headache, No seizure, No dizziness, No confusion, No vertigo ED Past Medical History - Past Medical History Past Medical History: No significant medical hx ED Physical Exam - Physical Examination General/Constitutional: Awake, Well-developed, well-nourished, Alert, No distress, GCS 15, Non-toxic appearing, Ambulatory Head: Atraumatic Eyes: Lids, conjuctiva normal, PERRL, EOMI Skin: Nl inspection, No rash, No skin lesions, No ecchymosis, Well hydrated, No lymphadenopathy Other Skin comments:: reddness lt lower leg with blisters and insect bites ENMT: External ears, nose nl, Nasal exam nl, Lips, teeth, gums nl Neck: Nontender, Full ROM w/o pain, No JVD, No nuchal rigidity, No bruit, No mass, No stridor Respiratory: Nl effort/Exclusion, Clear to Auscultation, No Wheeze/Rhonchi/Rales Cardio Vascular: RRR, No murmur, gallop, rubs, NL S1 S2 GI: No tenderness/rebounding/guarding, No organomegaly, No hernia, Normal BS's, Nondistended, No mass/bruits, No McBurney tenderness : No CVA tenderness Extremities: No tenderness or effusion, Full ROM, normal strength in all extremities, No edema, Normal digits & nails Neuro/Psych: Alert/oriented, DTR's symmetric, Normal sensory exam, Normal motor strength, Judgement/insight normal, Mood normal, Normal gait, No focal deficits Misc: Normal back, No paraspinal tenderness ED Assessment - Assessment Critical Care Time: cellulitis LLE ED Septic Shock - . Is Septic Shock (SBP<90, OR Lactate>4 mmol\L) present?: No - <6hrs of presentation: Vital Signs: Vital Signs - 8 hr 06/10/18 07:18 Temp 98.4 F HR 99 RR 15 BP 121/75 O2 Sat % 97 ED Reassessment (Disposition) - Reassessment Reassessment Condition:: Improved - Diagnosis Diagnosis:: CELLULITIS INFECTED INSECT BITES LLE - Patient Disposition Discharge/Transfer:: Acute Care w/in this hosp
[2018-06-10] MEDS ORDERED: Sodium Chloride 0.9% 1,000 ML IV ONE ×2 (07:41→08:37)
[2018-06-10 08:01] LABS: % EOSINOPHILS 0.8 % (0.0-5.0); % LYMPHOCYTES 18.6 % (20.0-50.0); % MONOCYTES 6.1 % (2.0-10.0); % NEUTROPHILS 73.5 % (40.0-80.0); BASOPHILE ABSOLUTE 0.1 Th/cumm (0-0.2); EOSINOPHILE ABSOLUTE 0.1 Th/cmm (0.1-0.4); HEMOGLOBIN 16.1 gm/dL (12-16); LYMPHOCYTE ABSOLUTE 1.7 Th/cmm (1.5-3.0); MEAN CELL VOLUME 91.3 fl (80-99); MEAN CORPUSCULAR HEMOGLOBIN 31.3 pg (26.0-30.0); MEAN CORPUSCULAR HGB CONC 34.2 pg (28.0-36.0); MEAN PLATELET VOLUME 7.9 fl; MONOCYTE ABSOLUTE 0.6 Th/cmm (0.3-1.0); NEUTROPHILE ABSOLUTE 6.8 Th/cmm (1.8-8.0); PLATELET COUNT 205 Th/cmm (150-400); RED BLOOD COUNT 5.14 Mil/cmm (4.30-5.70); RED CELL DISTRIBUTION WIDTH 12.9 % (11.5-20.0); WHITE BLOOD COUNT 9.3 Th/cmm (4.8-10.8)
[2018-06-10] MEDS ORDERED: Piperacillin Sodium/Tazobact 3.375 gm Vial IV ONE (08:06)
[2018-06-10 08:10] LABS: INR 0.91 (0.5-1.4); PROTHROMBIN TIME (TEST) 9.5 SECONDS (9.5-11.5)
[2018-06-10 08:14] LABS: ALB/GLOB RATIO 1.3 (1.0-1.8); ALBUMIN 4.1 gm/dL (4.2-5.5); ALKALINE PHOSPHATASE 86 U/L (34-104); ANION GAP 10.9 (7.0-16.0); BILIRUBIN,TOTAL 0.5 mg/dL (0.3-1.0); BUN - UREA NITROGEN 8 mg/dL (7-25); CALCIUM SERUM 9.5 mg/dL (8.6-10.3); CARBON DIOXIDE 24.5 mEq/L (21.0-31.0); CHLORIDE 101 mEq/L (98-107); CREATININE - SERUM 0.9 mg/dL (0.7-1.3); GFR AFRICAN-AMERICAN > 60.0 ml/min (>90); GFR NON AFRICAN-AMERICAN > 60.0 ml/min; GLUCOSE 154 mg/dL (70-105); POTASSIUM SERUM 3.4 mEq/L (3.5-5.1); SGOT 18 U/L (13-39); SGPT/ALT 18 U/L (7-52); SODIUM SERUM 133 mEq/L (136-145); TOTAL PROTEIN,SERUM 7.2 gm/dL (6.0-8.3)
[2018-06-10 11:09] LABS: URINE SOURCE CLEAN C
[2018-06-10 11:12] LABS: URINE BILIRUBIN NEGATIVE (NEGATIVE); URINE BLOOD TRACE (NEGATIVE); URINE GLUCOSE (UA) NEGATIVE (NEGATIVE); URINE KETONE NEGATIVE (NEGATIVE); URINE LEUKOCYTE ESTERASE NEGATIVE (NEGATIVE); URINE MICROSCOPIC INDICATED? YES; URINE NITRATE NEGATIVE (NEGATIVE); URINE PROTEIN TRACE mg/dL (NEGATIVE); URINE UROBILINOGEN 0.2 E.U./dL (0.2 - 1.0)
[2018-06-10 11:36] LABS: AMPHETAMINE URINE POSITIVE (NEGATIVE); BARBITURATES URINE NEGATIVE (NEGATIVE); COCAINE METABOLITE QUAL URINE NEGATIVE (NEGATIVE); METHADONE URINE NEGATIVE (NEGATIVE); METHAMPHETAMINES QUAL URINE POSITIVE (NEGATIVE); OPIATES (MORPHINE) QUAL. URINE NEGATIVE (NEGATIVE); PHENCYCLIDINE (PCP) URINE NEGATIVE (NEGATIVE); TRICYCLICS (TCA) QUAL. URINE NEGATIVE (NEGATIVE)
[2018-06-10 11:37] LABS: BENZODIAZEPINES QUAL URINE NEGATIVE (NEGATIVE); CANNABINOID THC NEGATIVE (NEGATIVE)
[2018-06-10 11:45] LABS: URINE CLARITY CLEAR (CLEAR); URINE COLOR YELLOW
[2018-06-10 11:46] LABS: URINE BACTERIA NONE SEEN /hpf (NONE SEEN); URINE EPITHELIAL CELLS RARE /lpf (FEW); URINE WBC 0-2 /hpf (0-5)
[2018-06-10] MEDS ORDERED: Vancomycin HCl 1.75 GM in Sodium Chloride 0.9% 500 ML IV SCH (14:45)
[2018-06-10 17:42] VITALS: BP 114/61
--- NOTE | 2018-06-10 22:37 | History & Physical ---
ADMIT DATE: 06/10/2018 CHIEF COMPLAINT: Bilateral lower extremity redness and pain. HISTORY OF PRESENT ILLNESS: This is a 32-year-old male with an underlying history of methamphetamine abuse, who was evaluated in the Emergency Room for bilateral lower extremity redness that started about 2 days ago. The patient in the Emergency Room was diagnosed with cellulitis with a high lactic acid level, and is admitted for further treatments. The patient denies a history of fever. No chills, no nausea, no vomiting, and no other complaints. PAST MEDICAL HISTORY: Denies. PAST SURGICAL HISTORY: Denies. FAMILY HISTORY: Noncontributory. SOCIAL HISTORY: Positive for tobacco, alcohol, and street drug use. CURRENT MEDICATIONS: Per medication list. ALLERGIES: Noted. REVIEW OF SYSTEMS: As per HPI, 12-point system is negative. PHYSICAL EXAMINATION: VITAL SIGNS: Temperature 100.0, pulse 67, respirations 17, blood pressure 98/50, and oxygen saturation 94% room air. HEART: S1, S2 normal. LUNGS: Clear. ABDOMEN: Soft, nontender. NEUROLOGIC: The patient is awake and follows commands. Bilateral lower extremity redness noted. Bilateral feet onychomycosis and tinea pedis noted. Both feet have callus noted. ASSESSMENT: 1. Bilateral lower extremity cellulitis. 2. Bilateral feet onychomycosis. 3. Bilateral tinea pedis. 4. Methadone abuse. PLAN: The patient has been started on vancomycin and Zosyn. ID consulted. Blood cultures obtained. The patient is on Toradol for pain control. Tylenol for pain and fever. Ketoconazole for both feet. The patient highly advised for street drug avoidance. Case discussed with ID and nursing staff. JOB# [id number] [facility]
--- NOTE | 2018-06-11 07:31 | Diagnostic Imaging Report ---
Left lower extremity DVT study HISTORY: Pain and swelling COMPARISON: None Technique: Longitudinal and transverse sonographic images of the left lower extremity veins were obtained with doppler analysis. FINDINGS: There is normal compressibility, augmentation and phasicity of the left common femoral, superficial femoral, popliteal, and posterior tibial veins. No thrombus is visualized. IMPRESSION: No evidence of thrombus within the left lower extremity veins.
[2018-06-11] MEDS: Vancomycin HCl 1.75 GM in Sodium Chloride 0.9% 500 ML IV SCH ×2 (09:28→20:10)
--- NOTE | 2018-06-11 12:59 | Consultation ---
Consult Note - Consult Note Service Date: 06/11/18 Referring Physician: Xavier Combs Consult Note: PHYSICIAN Consultation Note: Date of Admission: 06/10/18 Purpose of Consultation: cellulitis Chief Complaint: Patient DURAN ESTRADA was admitted to location Medical/ Surgical Unit I with LEFT LEG CELLULITIS. History of Present Illness: 32 year-male admitted for swelling and redness of the legs, worse on the left side. He denies any fevers. On initial evaluation, his temperature was 98.4 F and WBC Count was 9,300. ID consult was called and vanco IV with Zosyn were started. Past Medical History: Diagnoses TINEA UNGUIUM (06/10/18) TINEA PEDIS (06/10/18) OPIOID ABUSE, UNCOMPLICATED (06/10/18) CELLULITIS OF RIGHT LOWER LIMB (06/10/18) CELLULITIS OF LEFT LOWER LIMB (06/10/18) PAIN, UNSPECIFIED (06/10/18) Allergies Allergy/AdvReac Type Severity Reaction Status Date / Time No Known Allergies Allergy Verified 02/24/17 18:53 Vital Signs Temp 98 F 06/11/18 12:00 Pulse 58 06/11/18 12:00 Resp 18 06/11/18 12:00 BP 97/56 06/11/18 12:00 Pulse Ox 98 06/11/18 12:00 Intake & Output 06/10/18 06/11/18 06/11/18 18:59 06:59 18:59 Intake Total 700 100 Balance 700 100 Weight (lbs) 87.997 kg 87.997 kg Intake: Intake, IV Amount 100 100 Piperacillin Sodium/ 100 100 Tazobact 4.5 gm In Sodium Chloride 0.9% 100 ml @ 100 mls/hr IV Q8HR [facility] Rx #:[id number] Oral 600 Other: # Voids 1 0 # Bowel Movements 0 0 Weight Source Bedscale Bedscale Laboratory Results - last 24 hr 06/10/18 06/10/18 07:45 14:27 POC Glucose 133 H Whole Bld Lactic Acid 2.27 H* Home Medication Medication Instructions Recorded Type NK [No Home Meds] 06/10/18 History Current Medications Generic Name Dose Route Start Last Admin Trade Name Freq PRN Reason Stop Dose Admin Piperacillin Sod/Tazobactam 100 mls @ 100 mls/hr 06/10/18 16:00 08/28/18 05: 20 Sod 4.5 gm/ Sodium Chloride IV 08/09/18 15:59 Infused Q8HR [facility] Vancomycin HCl 1.75 gm/ Sodium 500 mls @ 250 mls/hr 06/11/18 09:00 06/11/18 09:28 Chloride IV 08/10/18 08:59 250 mls/hr Q12H [facility] Administration Ketoconazole 1 appl 06/11/18 09:00 06/11/18 09:28 Nizoral 2% Cream TP 08/10/18 08:59 1 appl BID [facility] Administration Ketorolac Tromethamine 15 mg 06/10/18 14:17 Toradol IVP 06/15/18 14:16 Q6H PRN Pain or Fever >101 Miscellaneous 1 ea 06/10/18 14:17 Vancomycin Iv Per Pharmacy [facility] 08/09/18 14:16 PRN PRN PROTOCOL Mupirocin 1 appl 06/11/18 17:00 Bactroban Oint NS 06/16/18 09:01 BID [facility] Review of Systems: A 12 point ROS was reviewed with the pertinent positive and negatives noted in the HPI. Social History Smoking Status Unknown if ever smoked Family Medical History nonsignificant. Physical Exam: General: Comfortable, not in distress. HEENT: HEENT: NC NT. Oral cavity: moist pink tongue, EYES: no pallor no icterus. Pupil PERRLA. EOMI. Neck: Supple no JVD, no carotid bruit, Cardio: S1 and S2 WNL. No murmir no gallop. Respiratory: CTAP Abdominal: Soft NT ND BS present. Genital/Urinary: Deferred Extremities: NCCE. swelling and redness of the left leg. there is redness of the right leg. Neurological: AAOx3, no focal neurodeficit. Assessment: 1. Cellulitis of both legs worse on the left side. Plan: Will continue vanco IV and disconitnue Zosyn. Thank you, Dr Combs to involving me in taking care of this patient. Aditi, Jeffrey Waldrop M.D. [id number]
--- NOTE | 2018-06-11 21:12 | General Progress Note ---
Subjective - Review of Systems Service Date: 06/11/18 Subjective: Patient doing better leg redness is better Objective - Results Result Diagrams: 06/10/18 07:45 06/10/18 07:45 Recent Labs: Laboratory Last Values WBC 9.3 Th/cmm (4.8-10.8) 06/10/18 07:45 RBC 5.14 Mil/cmm (4.30-5.70) 06/10/18 07:45 Hgb 16.1 gm/dL (12-16) 06/10/18 07:45 Hct 47.0 % (41.0-60) 06/10/18 07:45 MCV 91.3 fl (80-99) 06/10/18 07:45 MCH 31.3 pg (26.0-30.0) H 06/10/18 07:45 MCHC Differential 34.2 pg (28.0-36.0) 06/10/18 07:45 RDW 12.9 % (11.5-20.0) 06/10/18 07:45 Plt Count 205 Th/cmm (150-400) 06/10/18 07:45 MPV 7.9 fl 06/10/18 07:45 Neutrophils % 73.5 % (40.0-80.0) 06/10/18 07:45 Lymphocytes % 18.6 % (20.0-50.0) L 06/10/18 07:45 Monocytes % 6.1 % (2.0-10.0) 06/10/18 07:45 Eosinophils % 0.8 % (0.0-5.0) 06/10/18 07:45 Basophils % 1.0 % (0.0-2.0) 06/10/18 07:45 PT 9.5 SECONDS (9.5-11.5) 06/10/18 07:45 INR 0.91 (0.5-1.4) 06/10/18 07:45 PTT (Actin FS) 28.8 SECONDS (26.0-38.0) 06/10/18 07:45 Sodium 133 mEq/L (136-145) L 06/10/18 07:45 Potassium 3.4 mEq/L (3.5-5.1) L 06/10/18 07:45 Chloride 101 mEq/L (98-107) 06/10/18 07:45 Carbon Dioxide 24.5 mEq/L (21.0-31.0) 06/10/18 07:45 Anion Gap 10.9 (7.0-16.0) 06/10/18 07:45 BUN 8 mg/dL (7-25) 06/10/18 07:45 Creatinine 0.9 mg/dL (0.7-1.3) 06/10/18 07:45 Est GFR ( Amer) > 60.0 ml/min (>90) 06/10/18 07:45 Est GFR (Non-Af Amer) > 60.0 ml/min 06/10/18 07:45 BUN/Creatinine Ratio 8.9 06/10/18 07:45 Glucose 154 mg/dL (70-105) H 06/10/18 07:45 POC Glucose 133 MG/DL (70 - 105) H 06/10/18 14:27 Whole Bld Lactic Acid 1.28 mmol/L (0.60-1.99) 06/10/18 09:43 Calcium 9.5 mg/dL (8.6-10.3) 06/10/18 07:45 Total Bilirubin 0.5 mg/dL (0.3-1.0) 06/10/18 07:45 AST 18 U/L (13-39) 06/10/18 07:45 ALT 18 U/L (7-52) 06/10/18 07:45 Alkaline Phosphatase 86 U/L (34-104) 06/10/18 07:45 Total Protein 7.2 gm/dL (6.0-8.3) 06/10/18 07:45 Albumin 4.1 gm/dL (4.2-5.5) L 06/10/18 07:45 Globulin 3.1 gm/dL 06/10/18 07:45 Albumin/Globulin Ratio 1.3 (1.0-1.8) 06/10/18 07:45 Urine Source CLEAN C 06/10/18 10:50 Urine Color YELLOW 06/10/18 10:50 Urine Clarity CLEAR (CLEAR) 06/10/18 10:50 Urine pH 6.0 (4.6 - 8.0) 06/10/18 10:50 Ur Specific [place] 1.015 (1.005-1.030) 06/10/18 10:50 Urine Protein TRACE mg/dL (NEGATIVE) 06/10/18 10:50 Urine Glucose (UA) NEGATIVE mg/dL (NEGATIVE) 06/10/18 10:50 Urine Ketones NEGATIVE mg/dL (NEGATIVE) 06/10/18 10:50 Urine Blood TRACE (NEGATIVE) 06/10/18 10:50 Urine Nitrate NEGATIVE (NEGATIVE) 06/10/18 10:50 Urine Bilirubin NEGATIVE (NEGATIVE) 06/10/18 10:50 Urine Urobilinogen 0.2 E.U./dL (0.2 - 1.0) 06/10/18 10:50 Ur Leukocyte Esterase NEGATIVE (NEGATIVE) 06/10/18 10:50 Urine RBC 2-5 /hpf (0-5) H 06/10/18 10:50 Urine WBC 0-2 /hpf (0-5) 06/10/18 10:50 Ur Epithelial Cells RARE /lpf (FEW) 06/10/18 10:50 Urine Bacteria NONE SEEN /hpf (NONE SEEN) 06/10/18 10:50 Urine Opiates Screen NEGATIVE (NEGATIVE) 06/10/18 10:50 Urine Methadone Screen NEGATIVE (NEGATIVE) 06/10/18 10:50 Ur Barbiturates Screen NEGATIVE (NEGATIVE) 06/10/18 10:50 Ur Tricyclics Screen NEGATIVE (NEGATIVE) 06/10/18 10:50 Ur Phencyclidine Scrn NEGATIVE (NEGATIVE) 06/10/18 10:50 Amphetamines Screen POSITIVE (NEGATIVE) H 06/10/18 10:50 U Methamphetamines Scrn POSITIVE (NEGATIVE) H 06/10/18 10:50 U Benzodiazepines Scrn NEGATIVE (NEGATIVE) 06/10/18 10:50 U Cocaine Metab Screen NEGATIVE (NEGATIVE) 06/10/18 10:50 U Cannabinoids Screen NEGATIVE (NEGATIVE) 06/10/18 10:50 - Physical Exam Vitals and I&O: Vital Signs Temp 98.4 F 06/11/18 20:00 Pulse 62 06/11/18 20:00 Resp 17 06/11/18 20:00 BP 127/56 06/11/18 20:00 Pulse Ox 99 06/11/18 20:00 Intake & Output 06/11/18 06/11/18 06/12/18 06:59 18:59 06:59 Intake Total 100 1400 Balance 100 1400 Weight (lbs) 87.997 kg 87.997 kg Intake: Intake, IV Amount 100 500 Piperacillin Sodium/ 100 Tazobact 4.5 gm In Sodium Chloride 0.9% 100 ml @ 100 mls/hr IV Q8HR [facility] Rx #:[id number] Vancomycin HCl 1.75 gm In 500 Sodium Chloride 0.9% 500 ml @ 250 mls/hr IV Q12H [facility] Rx#:[id number] Oral 900 Other: # Voids 0 3 # Bowel Movements 0 1 Weight Source Bedscale Bedscale Active Medications: Current Medications Vancomycin HCl 1.75 gm/ Sodium (Chloride) 500 mls @ 250 mls/hr IV Q12H [facility] Stop: 08/10/18 08:59 Last Admin: 06/11/18 20:10 Dose: 250 mls/hr Ketoconazole (Nizoral 2% Cream) 1 appl TP BID [facility] Stop: 08/10/18 08:59 Last Admin: 06/11/18 16:40 Dose: 1 appl Ketorolac Tromethamine (Toradol) 15 mg IVP Q6H PRN PRN Reason: Pain or Fever >101 Stop: 06/15/18 14:16 Miscellaneous (Vancomycin Iv Per Pharmacy) 1 ea [facility] PRN PRN PRN Reason: PROTOCOL Stop: 08/09/18 14:16 Mupirocin (Bactroban Oint) 1 appl NS BID [facility] Stop: 06/16/18 09:01 Last Admin: 06/11/18 16:40 Dose: 1 appl Cardiovascular: Regular rate Lungs: Clear to auscultation Extremities: Other (redness bilaterally better) Assessment/Plan - Problem List Patient Problems: All Active Problems REDNESS AND SWELLING TO L LOWER LEG (Acute) - Assessment Assessment: Bilateral leg cellulitis MRSA Colonization Drug abuse - Plan Plan: IV Vanco Bactroban Counseled on drug avoidance
[2018-06-12 08:47] LABS: ANION GAP 10.9 (7.0-16.0); BUN - UREA NITROGEN 6 mg/dL (7-25); CALCIUM SERUM 9.3 mg/dL (8.6-10.3); CARBON DIOXIDE 24.1 mEq/L (21.0-31.0); CHLORIDE 108 mEq/L (98-107); CREATININE - SERUM 0.7 mg/dL (0.7-1.3); GFR AFRICAN-AMERICAN > 60.0 ml/min (>90); GFR NON AFRICAN-AMERICAN > 60.0 ml/min; GLUCOSE 107 mg/dL (70-105); SODIUM SERUM 139 mEq/L (136-145)
[2018-06-12] MEDS: Vancomycin HCl 1.75 GM in Sodium Chloride 0.9% 500 ML IV SCH (09:08)
--- NOTE | 2018-06-12 12:18 | Infectious Disease Prog Note ---
Infectious Disease Subjective - Review of Systems Service Date: 06/12/18 Subjective: Doing well, no fever. improving cellulitis. Infectious Disease Objective - Results Result Diagrams: 06/10/18 07:45 06/12/18 08:16 Recent Labs: Laboratory Last Values WBC 9.3 Th/cmm (4.8-10.8) 06/10/18 07:45 RBC 5.14 Mil/cmm (4.30-5.70) 06/10/18 07:45 Hgb 16.1 gm/dL (12-16) 06/10/18 07:45 Hct 47.0 % (41.0-60) 06/10/18 07:45 MCV 91.3 fl (80-99) 06/10/18 07:45 MCH 31.3 pg (26.0-30.0) H 06/10/18 07:45 MCHC Differential 34.2 pg (28.0-36.0) 06/10/18 07:45 RDW 12.9 % (11.5-20.0) 06/10/18 07:45 Plt Count 205 Th/cmm (150-400) 06/10/18 07:45 MPV 7.9 fl 06/10/18 07:45 Neutrophils % 73.5 % (40.0-80.0) 06/10/18 07:45 Lymphocytes % 18.6 % (20.0-50.0) L 06/10/18 07:45 Monocytes % 6.1 % (2.0-10.0) 06/10/18 07:45 Eosinophils % 0.8 % (0.0-5.0) 06/10/18 07:45 Basophils % 1.0 % (0.0-2.0) 06/10/18 07:45 PT 9.5 SECONDS (9.5-11.5) 06/10/18 07:45 INR 0.91 (0.5-1.4) 06/10/18 07:45 PTT (Actin FS) 28.8 SECONDS (26.0-38.0) 06/10/18 07:45 Sodium 139 mEq/L (136-145) 06/12/18 08:16 Potassium 4.0 mEq/L (3.5-5.1) 06/12/18 08:16 Chloride 108 mEq/L (98-107) H 06/12/18 08:16 Carbon Dioxide 24.1 mEq/L (21.0-31.0) 06/12/18 08:16 Anion Gap 10.9 (7.0-16.0) 06/12/18 08:16 BUN 6 mg/dL (7-25) L 06/12/18 08:16 Creatinine 0.7 mg/dL (0.7-1.3) 06/12/18 08:16 Est GFR ( Amer) > 60.0 ml/min (>90) 06/12/18 08:16 Est GFR (Non-Af Amer) > 60.0 ml/min 06/12/18 08:16 BUN/Creatinine Ratio 8.6 06/12/18 08:16 Glucose 107 mg/dL (70-105) H 06/12/18 08:16 POC Glucose 133 MG/DL (70 - 105) H 06/10/18 14:27 Whole Bld Lactic Acid 1.28 mmol/L (0.60-1.99) 06/10/18 09:43 Calcium 9.3 mg/dL (8.6-10.3) 06/12/18 08:16 Total Bilirubin 0.5 mg/dL (0.3-1.0) 06/10/18 07:45 AST 18 U/L (13-39) 06/10/18 07:45 ALT 18 U/L (7-52) 06/10/18 07:45 Alkaline Phosphatase 86 U/L (34-104) 06/10/18 07:45 Total Protein 7.2 gm/dL (6.0-8.3) 06/10/18 07:45 Albumin 4.1 gm/dL (4.2-5.5) L 06/10/18 07:45 Globulin 3.1 gm/dL 06/10/18 07:45 Albumin/Globulin Ratio 1.3 (1.0-1.8) 06/10/18 07:45 Urine Source CLEAN C 06/10/18 10:50 Urine Color YELLOW 06/10/18 10:50 Urine Clarity CLEAR (CLEAR) 06/10/18 10:50 Urine pH 6.0 (4.6 - 8.0) 06/10/18 10:50 Ur Specific [place] 1.015 (1.005-1.030) 06/10/18 10:50 Urine Protein TRACE mg/dL (NEGATIVE) 06/10/18 10:50 Urine Glucose (UA) NEGATIVE mg/dL (NEGATIVE) 06/10/18 10:50 Urine Ketones NEGATIVE mg/dL (NEGATIVE) 06/10/18 10:50 Urine Blood TRACE (NEGATIVE) 06/10/18 10:50 Urine Nitrate NEGATIVE (NEGATIVE) 06/10/18 10:50 Urine Bilirubin NEGATIVE (NEGATIVE) 06/10/18 10:50 Urine Urobilinogen 0.2 E.U./dL (0.2 - 1.0) 06/10/18 10:50 Ur Leukocyte Esterase NEGATIVE (NEGATIVE) 06/10/18 10:50 Urine RBC 2-5 /hpf (0-5) H 06/10/18 10:50 Urine WBC 0-2 /hpf (0-5) 06/10/18 10:50 Ur Epithelial Cells RARE /lpf (FEW) 06/10/18 10:50 Urine Bacteria NONE SEEN /hpf (NONE SEEN) 06/10/18 10:50 Vancomycin Trough 12.4 ug/mL (5-10) H 06/12/18 08:16 Urine Opiates Screen NEGATIVE (NEGATIVE) 06/10/18 10:50 Urine Methadone Screen NEGATIVE (NEGATIVE) 06/10/18 10:50 Ur Barbiturates Screen NEGATIVE (NEGATIVE) 06/10/18 10:50 Ur Tricyclics Screen NEGATIVE (NEGATIVE) 06/10/18 10:50 Ur Phencyclidine Scrn NEGATIVE (NEGATIVE) 06/10/18 10:50 Amphetamines Screen POSITIVE (NEGATIVE) H 06/10/18 10:50 U Methamphetamines Scrn POSITIVE (NEGATIVE) H 06/10/18 10:50 U Benzodiazepines Scrn NEGATIVE (NEGATIVE) 06/10/18 10:50 U Cocaine Metab Screen NEGATIVE (NEGATIVE) 06/10/18 10:50 U Cannabinoids Screen NEGATIVE (NEGATIVE) 06/10/18 10:50 - Physical Exam Vitals and I&O: Vital Signs Temp 98.0 F 06/12/18 08:00 Pulse 55 06/12/18 08:00 Resp 18 06/12/18 08:00 BP 108/59 06/12/18 08:00 Pulse Ox 98 06/12/18 08:00 Intake & Output 06/11/18 06/12/18 06/12/18 18:59 06:59 18:59 Intake Total 1400 950 Balance 1400 950 Weight (lbs) 87.997 kg 87.997 kg Intake: Intake, IV Amount 500 500 Vancomycin HCl 1.75 gm In 500 500 Sodium Chloride 0.9% 500 ml @ 250 mls/hr IV Q12H [facility] Rx#:[id number] Oral 900 450 Other: # Voids 3 2 # Bowel Movements 1 0 Weight Source Bedscale Bedscale Active Medications: Current Medications Vancomycin HCl 1.5 gm/ Sodium (Chloride) 500 mls @ 250 mls/hr IV Q8H [facility] Stop: 08/11/18 16:59 Ketoconazole (Nizoral 2% Cream) 1 appl TP BID [facility] Stop: 08/10/18 08:59 Last Admin: 06/12/18 09:08 Dose: 1 appl Ketorolac Tromethamine (Toradol) 15 mg IVP Q6H PRN PRN Reason: Pain or Fever >101 Stop: 06/15/18 14:16 Miscellaneous (Vancomycin Iv Per Pharmacy) 1 ea [facility] PRN PRN PRN Reason: PROTOCOL Stop: 08/09/18 14:16 Mupirocin (Bactroban Oint) 1 appl NS BID [facility] Stop: 06/16/18 09:01 Last Admin: 06/12/18 09:08 Dose: 1 appl General: no acute distress, well developed, well nourished HEENT: atraumatic, normocephalic, PERRLA Neck: supple, no thyromegaly Cardiovascular: S1S2, regular Lungs: no clear to auscultation bilaterally, no clear to percussion Abdomen: soft, no tender, no distended Extremities: other (improving redness of the left leg, swelling has resolved.), no cyanosis, no clubbing, no edema Neurological: awake, alert, oriented, CN 2-12 intact Skin: intact Infectious Disease Assmt/Plan - Problem List Patient Problems: All Active Problems REDNESS AND SWELLING TO L LOWER LEG (Acute) - Assessment Assessment: 1. Left leg cellulitis. 2. Right leg cellulitis. - Plan Plan: May initiate dc plan. Will change antibiotics to bactrim ds and augmentin po for 7 days.
[2018-06-12] MEDS ORDERED: Amoxicillin/Clavulanat 875/125 Tab PO SCH (17:00)
[2018-06-12] MEDS ORDERED: Sulfamethoxazole/TMP 800/160mg Tab PO SCH (17:00)
[2018-06-12] MEDS ORDERED: Vancomycin HCl 1.5 GM in Sodium Chloride 0.9% 500 ML IV SCH (17:00)
--- NOTE | 2018-06-12 22:12 | General Progress Note ---
Subjective - Review of Systems Service Date: 06/12/18 Subjective: Patient doing better leg redness is better Objective - Results Result Diagrams: 06/10/18 07:45 06/12/18 08:16 Recent Labs: Laboratory Last Values WBC 9.3 Th/cmm (4.8-10.8) 06/10/18 07:45 RBC 5.14 Mil/cmm (4.30-5.70) 06/10/18 07:45 Hgb 16.1 gm/dL (12-16) 06/10/18 07:45 Hct 47.0 % (41.0-60) 06/10/18 07:45 MCV 91.3 fl (80-99) 06/10/18 07:45 MCH 31.3 pg (26.0-30.0) H 06/10/18 07:45 MCHC Differential 34.2 pg (28.0-36.0) 06/10/18 07:45 RDW 12.9 % (11.5-20.0) 06/10/18 07:45 Plt Count 205 Th/cmm (150-400) 06/10/18 07:45 MPV 7.9 fl 06/10/18 07:45 Neutrophils % 73.5 % (40.0-80.0) 06/10/18 07:45 Lymphocytes % 18.6 % (20.0-50.0) L 06/10/18 07:45 Monocytes % 6.1 % (2.0-10.0) 06/10/18 07:45 Eosinophils % 0.8 % (0.0-5.0) 06/10/18 07:45 Basophils % 1.0 % (0.0-2.0) 06/10/18 07:45 PT 9.5 SECONDS (9.5-11.5) 06/10/18 07:45 INR 0.91 (0.5-1.4) 06/10/18 07:45 PTT (Actin FS) 28.8 SECONDS (26.0-38.0) 06/10/18 07:45 Sodium 139 mEq/L (136-145) 06/12/18 08:16 Potassium 4.0 mEq/L (3.5-5.1) 06/12/18 08:16 Chloride 108 mEq/L (98-107) H 06/12/18 08:16 Carbon Dioxide 24.1 mEq/L (21.0-31.0) 06/12/18 08:16 Anion Gap 10.9 (7.0-16.0) 06/12/18 08:16 BUN 6 mg/dL (7-25) L 06/12/18 08:16 Creatinine 0.7 mg/dL (0.7-1.3) 06/12/18 08:16 Est GFR ( Amer) > 60.0 ml/min (>90) 06/12/18 08:16 Est GFR (Non-Af Amer) > 60.0 ml/min 06/12/18 08:16 BUN/Creatinine Ratio 8.6 06/12/18 08:16 Glucose 107 mg/dL (70-105) H 06/12/18 08:16 POC Glucose 133 MG/DL (70 - 105) H 06/10/18 14:27 Whole Bld Lactic Acid 1.28 mmol/L (0.60-1.99) 06/10/18 09:43 Calcium 9.3 mg/dL (8.6-10.3) 06/12/18 08:16 Total Bilirubin 0.5 mg/dL (0.3-1.0) 06/10/18 07:45 AST 18 U/L (13-39) 06/10/18 07:45 ALT 18 U/L (7-52) 06/10/18 07:45 Alkaline Phosphatase 86 U/L (34-104) 06/10/18 07:45 Total Protein 7.2 gm/dL (6.0-8.3) 06/10/18 07:45 Albumin 4.1 gm/dL (4.2-5.5) L 06/10/18 07:45 Globulin 3.1 gm/dL 06/10/18 07:45 Albumin/Globulin Ratio 1.3 (1.0-1.8) 06/10/18 07:45 Urine Source CLEAN C 06/10/18 10:50 Urine Color YELLOW 06/10/18 10:50 Urine Clarity CLEAR (CLEAR) 06/10/18 10:50 Urine pH 6.0 (4.6 - 8.0) 06/10/18 10:50 Ur Specific [place] 1.015 (1.005-1.030) 06/10/18 10:50 Urine Protein TRACE mg/dL (NEGATIVE) 06/10/18 10:50 Urine Glucose (UA) NEGATIVE mg/dL (NEGATIVE) 06/10/18 10:50 Urine Ketones NEGATIVE mg/dL (NEGATIVE) 06/10/18 10:50 Urine Blood TRACE (NEGATIVE) 06/10/18 10:50 Urine Nitrate NEGATIVE (NEGATIVE) 06/10/18 10:50 Urine Bilirubin NEGATIVE (NEGATIVE) 06/10/18 10:50 Urine Urobilinogen 0.2 E.U./dL (0.2 - 1.0) 06/10/18 10:50 Ur Leukocyte Esterase NEGATIVE (NEGATIVE) 06/10/18 10:50 Urine RBC 2-5 /hpf (0-5) H 06/10/18 10:50 Urine WBC 0-2 /hpf (0-5) 06/10/18 10:50 Ur Epithelial Cells RARE /lpf (FEW) 06/10/18 10:50 Urine Bacteria NONE SEEN /hpf (NONE SEEN) 06/10/18 10:50 Vancomycin Trough 12.4 ug/mL (5-10) H 06/12/18 08:16 Urine Opiates Screen NEGATIVE (NEGATIVE) 06/10/18 10:50 Urine Methadone Screen NEGATIVE (NEGATIVE) 06/10/18 10:50 Ur Barbiturates Screen NEGATIVE (NEGATIVE) 06/10/18 10:50 Ur Tricyclics Screen NEGATIVE (NEGATIVE) 06/10/18 10:50 Ur Phencyclidine Scrn NEGATIVE (NEGATIVE) 06/10/18 10:50 Amphetamines Screen POSITIVE (NEGATIVE) H 06/10/18 10:50 U Methamphetamines Scrn POSITIVE (NEGATIVE) H 06/10/18 10:50 U Benzodiazepines Scrn NEGATIVE (NEGATIVE) 06/10/18 10:50 U Cocaine Metab Screen NEGATIVE (NEGATIVE) 06/10/18 10:50 U Cannabinoids Screen NEGATIVE (NEGATIVE) 06/10/18 10:50 - Physical Exam Vitals and I&O: Vital Signs Temp 97.0 F 06/12/18 14:19 Pulse 59 06/12/18 14:19 Resp 18 06/12/18 14:19 BP 109/61 06/12/18 14:19 Pulse Ox 97 06/12/18 14:19 Intake & Output 06/12/18 06/12/18 06/13/18 06:59 18:59 06:59 Intake Total 950 700 Balance 950 700 Weight (lbs) 87.997 kg 87.997 kg Intake: Intake, IV Amount 500 Vancomycin HCl 1.75 gm In 500 Sodium Chloride 0.9% 500 ml @ 250 mls/hr IV Q12H [facility] 234 BEDS AT [facility] Rx#:[id number] Oral 450 700 Other: # Voids 2 2 # Bowel Movements 0 1 Weight Source Bedscale Bedscale Cardiovascular: Regular rate Lungs: Clear to auscultation Extremities: Other (redness bilaterally better) Assessment/Plan - Assessment Assessment: Bilateral leg cellulitis MRSA Colonization Drug abuse - Plan Plan: Patient better DC home today Cleared by ID Oral antibiotics prescription per ID Follow up with Primary MD upon discharge advised
--- NOTE | 2018-06-27 11:08 | Discharge Summary ---
DATE OF DISCHARGE: 06/12/2018 FINAL DIAGNOSES: 1. Bilateral lower extremity cellulitis. 2. Bilateral feet onychomycosis. 3. Bilateral tinea pedis. 4. Methamphetamine abuse. HOSPITAL COURSE: This is a 32-year-old male admitted for evaluation of right lower extremity redness and pain, diagnosed with cellulitis, seen by ID, IV antibiotic was given. The patient also treated for onycho myasthenia. The patient also counseled for street drug avoidance. Drug related health, discussed with the patient while standing, the patient's cellulitis is not improving. The patient was cleared by ID for home discharge on antibiotics and antifungal. DISCHARGE CONDITION: Stable. DISCHARGE MEDICATIONS: Please see medication reconciliation followed by his primary MD as an outpatient. JOB# [id number]
== END 2018-06-12 15:20 | disposition home or self-care (01) | DRG 383 ==
LOC: EDBD 07:06 → ER 07:06 → MERGE 13:20 → MSI 13:20
PROVIDERS: ADMIT Family Medicine; ATTEND Family Medicine
DX: L03.116 Cellulitis of left lower limb (principal); B35.1 Tinea unguium; B35.3 Tinea pedis; F11.10 Opioid abuse, uncomplicated; S80.822A Blister (nonthermal), left lower leg, initial encounter; Z59.0 Homelessness; L03.115 Cellulitis of right lower limb; Z22.322 Carrier or suspected carrier of Methicillin resistant Staphylococcus aureus; W57.XXXA Bitten or stung by nonvenomous insect and other nonvenomous arthropods, initial encounter; Y93.89 Activity, other specified; Y92.89 Other specified places as the place of occurrence of the external cause; Y99.8 Other external cause status
CPT/HCPCS: 36415-UA; 80048-TC; 80053-TC; 80202-TC; 80307; 81001-TC; 82948-90; 83605; 85025-TC; 85610-TC; 93971-TC-LT; J2543; J3370; J7040

== ENCOUNTER 2018-06-24 18:05 | Inpatient (IN) | payer MEDICAID ==
--- NOTE | 2018-06-24 18:51 | ED Physician Chart ---
ED Chief Complaint/HPI - Patient Information Date Seen:: 06/24/18 Time Seen:: 18:46 Chief Complaint:: lt leg reddness doscoloration History of Present Illness:: 32 yr old male with hx chronic L LE REDDNESS AND DISCOLORATION WAS ADMITTEDHERE FEW WKS AGO FOR IV ABS WAS HERE FOR 2 DAYS AND DISCHARGED PT MENTIONS SOME FEVER Allergies:: Allergies Allergy/AdvReac Type Severity Reaction Status Date / Time No Known Allergies Allergy Verified 06/12/18 14:35 Vitals:: Vital Signs - 8 hr 06/24/18 18:23 Temp 97.5 F HR 107 RR 22 BP 137/78 O2 Sat % 100 ED Review of Systems - Review of Systems General/Constitutional: Fever, Chills Skin: Other (L LE REDDNESS DISCOLORATION) ED Past Medical History - Past Medical History Past Medical History: No significant medical hx Family Medical History - Family Member Mother History Unknown: Yes Ethnicity: Non- Hx Family Cancer: No Hx Family Coronary Artery Disease: No Hx Family Congestive Heart Failure: No Hx Family Hypertension: No Hx Family Stroke: No Hx Family Diabetes: No Hx Family Seizures: No Hx Family Dementia: No Hx Family AIDS: No Hx Family HIV: No Hx Family COPD: No Hx Family Hepatitis: No Hx Family Psychiatric Problems: Yes Hx Family Tuberculosis: No Father History Unknown: Yes ED Physical Exam - Physical Examination General/Constitutional: Awake, Well-developed, well-nourished, Alert, No distress, GCS 15, Non-toxic appearing, Ambulatory Head: Atraumatic Eyes: Lids, conjuctiva normal, PERRL, EOMI Skin: Nl inspection, No rash, No skin lesions, No ecchymosis, Well hydrated, No lymphadenopathy ENMT: External ears, nose nl, Nasal exam nl, Lips, teeth, gums nl Neck: Nontender, Full ROM w/o pain, No JVD, No nuchal rigidity, No bruit, No mass, No stridor Respiratory: Nl effort/Exclusion, Clear to Auscultation, No Wheeze/Rhonchi/Rales Cardio Vascular: RRR, No murmur, gallop, rubs, NL S1 S2 GI: No tenderness/rebounding/guarding, No organomegaly, No hernia, Normal BS's, Nondistended, No mass/bruits, No McBurney tenderness : No CVA tenderness Extremities: No tenderness or effusion, Full ROM, normal strength in all extremities, No edema, Normal digits & nails Other Extremities comments:: LLE REDDNESS DISCOLORATION Neuro/Psych: Alert/oriented, DTR's symmetric, Normal sensory exam, Normal motor strength, Judgement/insight normal, Mood normal, Normal gait, No focal deficits Misc: Normal back, No paraspinal tenderness ED Assessment - Assessment General Assessment: LLE CELLULITIS ED Septic Shock - . Is Septic Shock (SBP<90, OR Lactate>4 mmol\L) present?: No - <6hrs of presentation: Vital Signs: Vital Signs - 8 hr 06/24/18 18:23 Temp 97.5 F HR 107 RR 22 BP 137/78 O2 Sat % 100 ED Reassessment (Disposition) - Diagnosis Diagnosis:: LLE CELLULITIS - Patient Disposition Discharge/Transfer:: Acute Care w/in this hosp Condition at Disposition:: Stable
[2018-06-24 19:28] LABS: URINE SOURCE CLEAN C
[2018-06-24 19:32] LABS: URINE BILIRUBIN SMALL (NEGATIVE); URINE BLOOD SMALL (NEGATIVE); URINE GLUCOSE (UA) 100 mg/dL (NEGATIVE); URINE KETONE TRACE mg/dL (NEGATIVE); URINE LEUKOCYTE ESTERASE NEGATIVE (NEGATIVE); URINE MICROSCOPIC INDICATED? YES; URINE NITRATE NEGATIVE (NEGATIVE); URINE PROTEIN 100 mg/dL (NEGATIVE); URINE UROBILINOGEN 0.2 E.U./dL (0.2 - 1.0)
[2018-06-24 19:34] LABS: URINE CLARITY HAZY (CLEAR); URINE COLOR YELLOW
[2018-06-24 19:37] LABS: URINE BACTERIA 1+ /hpf (NONE SEEN); URINE EPITHELIAL CELLS FEW /lpf (FEW); URINE WBC 0-2 /hpf (0-5)
[2018-06-24 19:38] LABS: URINE FINE GRANULAR CAST 0-2 /lpf (NONE SEEN)
[2018-06-24 19:40] LABS: AMPHETAMINE URINE POSITIVE (NEGATIVE); BARBITURATES URINE NEGATIVE (NEGATIVE); BENZODIAZEPINES QUAL URINE NEGATIVE (NEGATIVE); CANNABINOID THC POSITIVE (NEGATIVE); COCAINE METABOLITE QUAL URINE NEGATIVE (NEGATIVE); METHADONE URINE NEGATIVE (NEGATIVE); METHAMPHETAMINES QUAL URINE POSITIVE (NEGATIVE); OPIATES (MORPHINE) QUAL. URINE NEGATIVE (NEGATIVE); PHENCYCLIDINE (PCP) URINE NEGATIVE (NEGATIVE); TRICYCLICS (TCA) QUAL. URINE NEGATIVE (NEGATIVE)
[2018-06-24 21:10] LABS: % BASOPHILS 2.1 % (0.0-2.0); % EOSINOPHILS 0.4 % (0.0-5.0); % LYMPHOCYTES 14.3 % (20.0-50.0); % MONOCYTES 7.9 % (2.0-10.0); % NEUTROPHILS 75.3 % (40.0-80.0); BASOPHILE ABSOLUTE 0.2 Th/cumm (0-0.2); HEMATOCRIT 41.5 % (41.0-60); HEMOGLOBIN 13.8 gm/dL (12-16); LYMPHOCYTE ABSOLUTE 1.5 Th/cmm (1.5-3.0); MEAN CELL VOLUME 92.2 fl (80-99); MEAN CORPUSCULAR HEMOGLOBIN 30.6 pg (26.0-30.0); MEAN CORPUSCULAR HGB CONC 33.2 pg (28.0-36.0); MEAN PLATELET VOLUME 7.3 fl; MONOCYTE ABSOLUTE 0.9 Th/cmm (0.3-1.0); NEUTROPHILE ABSOLUTE 8.2 Th/cmm (1.8-8.0); PLATELET COUNT 282 Th/cmm (150-400); RED CELL DISTRIBUTION WIDTH 12.9 % (11.5-20.0); WHITE BLOOD COUNT 10.8 Th/cmm (4.8-10.8)
[2018-06-24 21:26] LABS: INR 0.97 (0.5-1.4); PROTHROMBIN TIME (TEST) 10.1 SECONDS (9.5-11.5)
[2018-06-24 21:30] LABS: ALB/GLOB RATIO 1.3 (1.0-1.8); ALBUMIN 3.6 gm/dL (4.2-5.5); ALKALINE PHOSPHATASE 67 U/L (34-104); ANION GAP 10.2 (7.0-16.0); BILIRUBIN,TOTAL 0.3 mg/dL (0.3-1.0); BUN - UREA NITROGEN 8 mg/dL (7-25); CALCIUM SERUM 9.1 mg/dL (8.6-10.3); CARBON DIOXIDE 25.4 mEq/L (21.0-31.0); CHLORIDE 103 mEq/L (98-107); CREATININE - SERUM 0.6 mg/dL (0.7-1.3); GFR AFRICAN-AMERICAN > 60.0 ml/min (>90); GFR NON AFRICAN-AMERICAN > 60.0 ml/min; GLUCOSE 90 mg/dL (70-105); PHOSPHOROUS 3.4 mg/dL (2.5-5.0); POTASSIUM SERUM 3.6 mEq/L (3.5-5.1); SGOT 13 U/L (13-39); SGPT/ALT 11 U/L (7-52); SODIUM SERUM 135 mEq/L (136-145); TOTAL PROTEIN,SERUM 6.4 gm/dL (6.0-8.3)
[2018-06-25] MEDS ORDERED: Lactated Ringer 1,000 ML IV ONE (02:54)
--- NOTE | 2018-06-25 07:55 | Diagnostic Imaging Report ---
Left lower extremity Doppler venous ultrasound exam HISTORY: Pain/swelling Sonographic sector images were obtained through the deep venous systems of the left leg. Associated Doppler data was obtained. The exam demonstrates patency of the common femoral, superficial femoral, popliteal, and posterior tibial veins. Specifically, no thrombus is seen. There are normal compressibility and augmentation responses. IMPRESSION: Negative exam for deep vein thrombophlebitis.
[2018-06-25 09:53] LABS: HEMATOCRIT 43.5 % (41.0-60); HEMOGLOBIN 14.6 gm/dL (12-16); MEAN CORPUSCULAR HEMOGLOBIN 30.5 pg (26.0-30.0); MEAN CORPUSCULAR HGB CONC 33.5 pg (28.0-36.0); MEAN PLATELET VOLUME 7.8 fl; PLATELET COUNT 298 Th/cmm (150-400); RED BLOOD COUNT 4.78 Mil/cmm (4.30-5.70); RED CELL DISTRIBUTION WIDTH 12.6 % (11.5-20.0); WHITE BLOOD COUNT 10.8 Th/cmm (4.8-10.8)
[2018-06-25 09:58] LABS: ALB/GLOB RATIO 1.2 (1.0-1.8); ALBUMIN 3.6 gm/dL (4.2-5.5); ALKALINE PHOSPHATASE 73 U/L (34-104); ANION GAP 10.8 (7.0-16.0); BILIRUBIN,TOTAL 0.3 mg/dL (0.3-1.0); BUN - UREA NITROGEN 10 mg/dL (7-25); CALCIUM SERUM 9.5 mg/dL (8.6-10.3); CARBON DIOXIDE 22.1 mEq/L (21.0-31.0); CHLORIDE 105 mEq/L (98-107); CREATININE - SERUM 0.7 mg/dL (0.7-1.3); GFR AFRICAN-AMERICAN > 60.0 ml/min (>90); GFR NON AFRICAN-AMERICAN > 60.0 ml/min; GLUCOSE 146 mg/dL (70-105); MAGNESIUM 1.9 mg/dL (1.9-2.7); POTASSIUM SERUM 3.9 mEq/L (3.5-5.1); SGOT 12 U/L (13-39); SGPT/ALT 11 U/L (7-52); SODIUM SERUM 134 mEq/L (136-145); TOTAL PROTEIN,SERUM 6.7 gm/dL (6.0-8.3)
[2018-06-25 10:09] LABS: ESR SEDIMENTATION SED RATE 29 mm/hr (0-20)
[2018-06-25 10:24] LABS: BAND NEUTROPHILE 6 % (0-10); BASOPHIL 0 % (0-3); EOSINOPHIL 0 % (0-5); LYMPHOCYTE 8 % (20-50); MONOCYTE 2 % (2-10); NEUTROPHILS 84 % (40-80)
[2018-06-25 10:41] VITALS: BP 123/64
--- NOTE | 2018-06-25 10:46 | History & Physical ---
ADMIT DATE: CHIEF COMPLAINT: Recurrent left lower extremity cellulitis. HISTORY OF PRESENT ILLNESS: This is a 32-year-old gentleman who apparently has been admitted multiple times for similar episodes of left lower extremity redness and swelling. Apparently, he has been admitted twice during the last month-last discharge date noted is 06/10/2018. The patient states that initially the redness and swelling started couple of months ago when he noted some blisters and started scratching and since then has had recurrent issues. He stated that the extremity started getting warmer and more swollen about 3 days ago and decided to come in to the ED yesterday. He also has a history of chronic meth use, but denies any IVDA. He denies any purulent discharge or open wounds. The patient has been admitted to the Medical/Surgical floor for further management and care. PAST MEDICAL HISTORY: Denies. PAST SURGICAL HISTORY: Denies. FAMILY HISTORY: No known diabetes or hypertension. SOCIAL HISTORY: Tobacco use: he smokes about half a pack per day since age 17. Alcohol: he drinks 2 beers every other day since age 23. Drugs: he snores meth and uses marijuana, currently unemployed. ALLERGIES: NKDA. OUTPATIENT MEDICATIONS: Currently None. He states that he was given outpatient p.o. antibiotics on his prior visits, which he cannot remember. REVIEW OF SYSTEMS: CONSTITUTIONAL: He does not report 1 episode of fever, chills couple days ago, recent weight loss. CARDIOVASCULAR: No chest pain, palpitations. PULMONARY: No cough, phlegm production. GASTROINTESTINAL: No bowel habit changes. GENITOURINARY: No bladder habit changes. NEUROLOGIC: There are no changes in vision, no headaches. PHYSICAL EXAMINATION: VITAL SIGNS: Temperature 97.7, afebrile, pulse 62, respirations 17, BP 116/53, satting 98% on room air. GENERAL: Well-developed, mildly disheveled-appearing male, not in acute distress. He is somewhat drowsy, but arousable, awake, alert and oriented x 3 and in no acute distress. HEAD AND NECK: Normocephalic, atraumatic. Pupils reactive to light. Extraocular movements are intact. Oropharynx moist and clear. CARDIAC: Regular rate and rhythm without any murmurs. LUNGS: Clear to auscultation bilaterally. ABDOMEN: Soft, supple, nontender, nondistended, normoactive bowel sounds. LOWER EXTREMITIES: On the left lower extremity, there is some swelling and redness on the left lower extremity [address] There is trace edema. No open wounds or ulcers. NEUROLOGIC: Exam was basically within normal limits intact. LABS: CBC was essentially within normal limits. Chemistry, sodium 134, glucose 146. LFTs were essentially within normal limits. UA was positive for protein and glucose with a small blood noted and small bilirubin, total of 5 rbc's, 1+ bacteria. U-tox positive for meth and cannabinoids. DIAGNOSTICS: Duplex venous ultrasound was negative for DVT on the left lower extremity. ASSESSMENT: 1. Recurrent left lower extremity cellulitis. 2. History of chronic meth use. 3. Hyperglycemia, rule out diabetes. 4. Glucosuria. 5. Proteinuria. PLAN: The patient has been admitted to the Medical/Surgical floor where he has been placed on vancomycin and Rocephin. The patient was given a dose of Solu-Medrol at the ED and the patient's cellulitis will be assessed on a daily basis by placing a fred on his leg and tracking down the erythema. I have asked for hemoglobin A1c to be done given his elevated sugar levels. JOB# [id number] [facility]
[2018-06-25] MEDS ORDERED: Vancomycin HCl 1.75 GM in Sodium Chloride 0.9% 500 ML IV ONE (11:00)
[2018-06-25] MEDS: cefTRIAXone 1 GM in Sodium Chloride 0.9% 50 ML IV SCH (15:32)
[2018-06-25] MEDS: Vancomycin HCl 1.75 GM in Sodium Chloride 0.9% 500 ML IV SCH (17:00)
[2018-06-26] MEDS: Vancomycin HCl 1.75 GM in Sodium Chloride 0.9% 500 ML IV SCH (01:20)
[2018-06-26 08:50] LABS: % BASOPHILS 0.7 % (0.0-2.0); % EOSINOPHILS 0.5 % (0.0-5.0); % LYMPHOCYTES 36.2 % (20.0-50.0); % MONOCYTES 5.4 % (2.0-10.0); % NEUTROPHILS 57.2 % (40.0-80.0); BASOPHILE ABSOLUTE 0.1 Th/cumm (0-0.2); HEMATOCRIT 39.4 % (41.0-60); LYMPHOCYTE ABSOLUTE 3.4 Th/cmm (1.5-3.0); MEAN CELL VOLUME 91.8 fl (80-99); MEAN CORPUSCULAR HEMOGLOBIN 30.2 pg (26.0-30.0); MEAN CORPUSCULAR HGB CONC 32.9 pg (28.0-36.0); MEAN PLATELET VOLUME 7.7 fl; MONOCYTE ABSOLUTE 0.5 Th/cmm (0.3-1.0); NEUTROPHILE ABSOLUTE 5.3 Th/cmm (1.8-8.0); PLATELET COUNT 257 Th/cmm (150-400); RED BLOOD COUNT 4.29 Mil/cmm (4.30-5.70); RED CELL DISTRIBUTION WIDTH 12.8 % (11.5-20.0); WHITE BLOOD COUNT 9.3 Th/cmm (4.8-10.8)
[2018-06-26 09:02] LABS: ANION GAP 9.8 (7.0-16.0); BUN - UREA NITROGEN 10 mg/dL (7-25); CALCIUM SERUM 8.8 mg/dL (8.6-10.3); CARBON DIOXIDE 23.7 mEq/L (21.0-31.0); CHLORIDE 109 mEq/L (98-107); CHOLESTEROL 119 mg/dL (<200); CREATININE - SERUM 0.7 mg/dL (0.7-1.3); GFR AFRICAN-AMERICAN > 60.0 ml/min (>90); GFR NON AFRICAN-AMERICAN > 60.0 ml/min; GLUCOSE 117 mg/dL (70-105); HDL -HIGH DENSITY LIPOPROTEIN 49 mg/dL (23-92); MAGNESIUM 1.7 mg/dL (1.9-2.7); POTASSIUM SERUM 3.5 mEq/L (3.5-5.1); SODIUM SERUM 139 mEq/L (136-145); TRIGLYCERIDES 73 mg/dL (<150)
[2018-06-26] MEDS: cefTRIAXone 1 GM in Sodium Chloride 0.9% 50 ML IV SCH (09:03)
[2018-06-26] MEDS ORDERED: Vancomycin HCl 1.5 GM in Sodium Chloride 0.9% 500 ML IV SCH (10:00)
--- NOTE | 2018-06-26 10:53 | Discharge Summary ---
DATE OF DISCHARGE: 06/26/2018 ADMITTING DIAGNOSES: 1. Recurrent left lower extremity cellulitis. 2. Hyperglycemia/glucosuria -- rule out diabetes. 3. Proteinuria. SECONDARY DIAGNOSES: 1. History of polysubstance abuse including chronic meth use. 2. Recent history of recurrent left lower extremity cellulitis. DISCHARGE DIAGNOSES: 1. Recurrent left lower extremity cellulitis -- improved. 2. Elevated ESR and CRP secondary to above. 3. Elevated hyperglycemia/glucosuria. R/O DM-2. Awaiting A1c results. CONSULTANTS: No consultants were used during this admission. DIAGNOSTICS: There was a duplex venous ultrasound done in the ER negative for DVT. BRIEF HOSPITAL COURSE: 32-year-old male who has been admitted to this facility multiple times, more so in the last few weeks for a recurrent left lower extremity cellulitis. Last discharge date noted was 06/10/18 and apparently, the patient has not been compliant with outpatient antibiotics after discharge. He presented with a recurrent left lower extremity swelling and redness consistent with cellulitis. He denies any IVDA and states that the initial cellulitis started when he had some scabs and started scratching them frequently a few weeks ago. He was admitted to the Medical Surgical Floor and placed on IV antibiotics (IV vancomycin and Rocephin with improvement of his symptoms). By hospital day #2, his redness and swelling had improved. I instructed him to follow my instructions on completing a p.o. antibiotic course for 10 days and to also take anti-inflammatories that were also prescribed to him. To this plan, he was agreeable. I also instructed him to follow up with his primary care doctor for f/u on the cellulitis as well as to follow-up on HgA1c results. DISCHARGE MEDICATIONS: Clindamycin 300 mg t.i.d. x 10 days, ibuprofen 800 mg p.o. t.i.d. with meals x 10 days. DISPOSITION: The patient was discharged home. I asked social work professor talk to the patient prior to being discharged given his multi-substance abuse and then it for a bus pass. JOB# [id number] [facility]
== END 2018-06-26 10:30 | DRG 383 ==
LOC: ER 18:05 → MSI 22:20
PROVIDERS: ADMIT Internal Medicine; ATTEND Internal Medicine
DX: L03.116 Cellulitis of left lower limb (principal); E87.1 Hypo-osmolality and hyponatremia; F12.90 Cannabis use, unspecified, uncomplicated; F17.200 Nicotine dependence, unspecified, uncomplicated; R73.9 Hyperglycemia, unspecified; R80.9 Proteinuria, unspecified; F15.90 Other stimulant use, unspecified, uncomplicated
CPT/HCPCS: 36415-UA; 80048-TC; 80053-TC; 80061-TC; 80202-TC; 80307; 81001-TC; 82948-90; 83036-90; 83735-TC; 84100-TC; 84443-TC; 85007-TC; 85025-TC; 85610-TC; 85652-TC; 86141-TC; 93971-TC-LT; 96375; J0696; J2930; J3370; J7040

== ENCOUNTER 2018-10-28 14:17 | Emergency (ER) | payer MEDICAID ==
[2018-10-28] MEDS ORDERED: Triple Antibiotic 0.94 gm Pkt TP STA (14:54)
[2018-10-28] MEDS ORDERED: Triple Antibiotic 0.94 gm Pkt TP ONE (15:03)
--- NOTE | 2018-11-11 18:19 | ER Physician Documentation ---
DATE OF SERVICE: 10/28/2018 CHIEF COMPLAINT: Left ear pain as well as left posterior neck lesion. HISTORY OF PRESENT ILLNESS: The patient is a known meth addict who admits to recent meth use, who complains of left ear pain as well as a left skin lesion that he picks at. He does have a history of Staph aureus. PAST MEDICAL HISTORY: Remarkable for methamphetamine usage and methamphetamine rash as well as picking at lesions. REVIEW OF SYSTEMS: Negative for fevers, chills, nausea, vomiting, diarrhea. Positive for skin scab and erythema as well as left ear pain. PHYSICAL EXAMINATION: GENERAL: The patient is an obvious meth addict, he was not presently tweaking at this time and has a left otitis externa with some swelling of the left ear canal, nonexistent pain with manipulation of the external ear. No lymphadenopathy present. He also has a scabbed area present on his left posterior neck area, which measures approximately 2 inches x 2 inches in size with minimal erythema around it. There is no evidence of abscess. There is no evidence of lymphadenopathy. PULMONARY: Lungs are clear to auscultation bilaterally. COR: Regular rate and rhythm. MEDICATIONS USAGE: Methamphetamine usage. ASSESSMENT/PLAN: The patient has left otitis externa for which I have written him for Cortisporin eardrops. With respect to his left staph infection of his neck I have written him for Bactrim double strength 1 tab p.o. b.i.d. for 10 days. He also had wound care performed to the area with hydrogen peroxide and antibiotic ointment. He was told specifically not to pick at his left neck lesion. Instruction sheets included otitis externa and methamphetamine abuse. Again, he was given a prescription for Cortisporin ear drops 1 drop to left ear q.i.d. for 7 days and Bactrim double strength 1 p.o. b.i.d. #20 for the left neck staph infection. He was told how highly contagious staph is to others. JOB# [id number] [facility]
== END 2018-10-28 15:10 | disposition short-term general hospital (02) ==
LOC: ER 14:17
DX: H60.92 Unspecified otitis externa, left ear (principal); L53.9 Erythematous condition, unspecified; F15.90 Other stimulant use, unspecified, uncomplicated; Z59.0 Homelessness
CPT/HCPCS: 99283; 96372; J0696; J2001; Z7502

== ENCOUNTER 2018-11-26 22:58 | Emergency (ER) | payer MEDICAID ==
--- NOTE | 2018-11-27 01:25 | ED Physician Chart ---
ED Chief Complaint/HPI - Patient Information Date Seen:: 11/27/18 Time Seen:: 01:14 Chief Complaint:: Hearing voice and suicidal ideation History of Present Illness:: 33 yo male with history of schizophrenia and methamphetamine use, stated that " I am hearing shit" and the voice telling him to hurt himself. He plugged foreign bodies in his bilateral external ear canals to block the voice. Pt had somewhat incoherent thought process. Pt had a recent ER visit for left otitis external and left neck skin lesion a month ago. He was prescribed with Cortisporin eardrop and Bactrim DS. He also was admitted for recurrent left lower extremity cellulitis 5 months ago. Allergies:: Allergies Allergy/AdvReac Type Severity Reaction Status Date / Time No Known Allergies Allergy Verified 06/12/18 14:35 Vitals:: Vital Signs - 8 hr 11/26/18 23:20 Temp 98.1 F HR 89 RR 18 BP 136/77 O2 Sat % 99 ED Review of Systems - Review of Systems General/Constitutional: No fever, No chills Skin: Skin lesions Head: No headache Eyes: No pain ENT: Earache Neck: No neck pain Cardio Vascular: No chest pain Pulmonary: No SOB GI: No nausea, No vomiting Musculoskeletal: No bone or joint pain Psychiatric: Prior psych history Neurological: No focal symptoms ED Past Medical History - Past Medical History Past Medical History: Other (Substance abuse) Social History: Smoker, Alcohol, Illicit Drug Use (methamphetamine) Psychiatricy History: Schizophrenia Family Medical History - Family Member Mother History Unknown: Yes Ethnicity: Non- Hx Family Cancer: No Hx Family Coronary Artery Disease: No Hx Family Congestive Heart Failure: No Hx Family Hypertension: No Hx Family Stroke: No Hx Family Diabetes: No Hx Family Seizures: No Hx Family Dementia: No Hx Family AIDS: No Hx Family HIV: No Hx Family COPD: No Hx Family Hepatitis: No Hx Family Psychiatric Problems: Yes Hx Family Tuberculosis: No Father History Unknown: Yes ED Physical Exam - Physical Examination General/Constitutional: Awake, Alert Head: Atraumatic Eyes: PERRL Skin: No ecchymosis ENMT: Nasal exam nl Other ENMT comments:: Foreign bodies in bilateral external ear canals Neck: No nuchal rigidity Respiratory: No Wheeze/Rhonchi/Rales Cardio Vascular: RRR, No murmur, gallop, rubs, NL S1 S2 GI: No tenderness/rebounding/guarding Extremities: Full ROM Neuro/Psych: No focal deficits ED Labs/Radiology/EKG Results - Lab Results Results: Laboratory Last Values WBC 9.5 Th/cmm (4.8-10.8) 11/27/18 01:58 RBC 5.21 Mil/cmm (4.30-5.70) 11/27/18 01:58 Hgb 15.9 gm/dL (12-16) 11/27/18 01:58 Hct 48.3 % (41.0-60) 11/27/18 01:58 MCV 92.8 fl (80-99) 11/27/18 01:58 MCH 30.6 pg (26.0-30.0) H 11/27/18 01:58 MCHC Differential 32.9 pg (28.0-36.0) 11/27/18 01:58 RDW 11.9 % (11.5-20.0) 11/27/18 01:58 Plt Count 285 Th/cmm (150-400) 11/27/18 01:58 MPV 6.6 fl 11/27/18 01:58 Neutrophils % 55.7 % (40.0-80.0) 11/27/18 01:58 Lymphocytes % 28.5 % (20.0-50.0) 11/27/18 01:58 Monocytes % 10.6 % (2.0-10.0) H 11/27/18 01:58 Eosinophils % 4.6 % (0.0-5.0) 11/27/18 01:58 Basophils % 0.6 % (0.0-2.0) 11/27/18 01:58 Sodium 139 mEq/L (136-145) 11/27/18 01:58 Potassium 4.1 mEq/L (3.5-5.1) 11/27/18 01:58 Chloride 104 mEq/L (98-107) 11/27/18 01:58 Carbon Dioxide 28.3 mEq/L (21.0-31.0) 11/27/18 01:58 Anion Gap 10.8 (7.0-16.0) 11/27/18 01:58 BUN 12 mg/dL (7-25) 11/27/18 01:58 Creatinine 0.8 mg/dL (0.7-1.3) 11/27/18 01:58 Est GFR ( Amer) > 60.0 ml/min (>90) 11/27/18 01:58 Est GFR (Non-Af Amer) > 60.0 ml/min 11/27/18 01:58 BUN/Creatinine Ratio 15.0 11/27/18 01:58 Glucose 82 mg/dL (70-105) 11/27/18 01:58 Calcium 9.5 mg/dL (8.6-10.3) 11/27/18 01:58 Total Bilirubin 0.4 mg/dL (0.3-1.0) 11/27/18 01:58 AST 31 U/L (13-39) 11/27/18 01:58 ALT 26 U/L (7-52) 11/27/18 01:58 Alkaline Phosphatase 114 U/L (34-104) H 11/27/18 01:58 Troponin I < 0.01 ng/mL (0.01-0.05) L 11/27/18 01:58 B-Natriuretic Peptide < 5.0 pg/mL (5.0-100.0) L 11/27/18 01:58 Total Protein 7.3 gm/dL (6.0-8.3) 11/27/18 01:58 Albumin 4.4 gm/dL (4.2-5.5) 11/27/18 01:58 Globulin 2.9 gm/dL 11/27/18 01:58 Albumin/Globulin Ratio 1.5 (1.0-1.8) 11/27/18 01:58 TSH 0.51 uIU/ml (0.34-5.60) 11/27/18 01:58 Urine Source CLEAN C 11/27/18 04:20 Urine Color YELLOW 11/27/18 04:20 Urine Clarity SLIGHTLY HAZY (CLEAR) 11/27/18 04:20 Urine pH 7.0 (4.6 - 8.0) 11/27/18 04:20 Ur Specific [place] 1.015 (1.005-1.030) 11/27/18 04:20 Urine Protein TRACE mg/dL (NEGATIVE) 11/27/18 04:20 Urine Glucose (UA) NEGATIVE mg/dL (NEGATIVE) 11/27/18 04:20 Urine Ketones NEGATIVE mg/dL (NEGATIVE) 11/27/18 04:20 Urine Blood NEGATIVE (NEGATIVE) 11/27/18 04:20 Urine Nitrate NEGATIVE (NEGATIVE) 11/27/18 04:20 Urine Bilirubin NEGATIVE (NEGATIVE) 11/27/18 04:20 Urine Urobilinogen 1.0 E.U./dL (0.2 - 1.0) 11/27/18 04:20 Ur Leukocyte Esterase NEGATIVE (NEGATIVE) 11/27/18 04:20 Urine RBC 0-2 /hpf (0-5) H 11/27/18 04:20 Urine WBC 0-2 /hpf (0-5) 11/27/18 04:20 Ur Epithelial Cells RARE /lpf (FEW) 11/27/18 04:20 Amorphous Sediment MANY URATES (NONE SEEN) 11/27/18 04:20 Urine Bacteria NONE SEEN /hpf (NONE SEEN) 11/27/18 04:20 Urine Opiates Screen NEGATIVE (NEGATIVE) 11/27/18 04:20 Urine Methadone Screen NEGATIVE (NEGATIVE) 11/27/18 04:20 Ur Barbiturates Screen NEGATIVE (NEGATIVE) 11/27/18 04:20 Ur Tricyclics Screen NEGATIVE (NEGATIVE) 11/27/18 04:20 Ur Phencyclidine Scrn NEGATIVE (NEGATIVE) 11/27/18 04:20 Amphetamines Screen POSITIVE (NEGATIVE) H 11/27/18 04:20 U Methamphetamines Scrn POSITIVE (NEGATIVE) H 11/27/18 04:20 U Benzodiazepines Scrn NEGATIVE (NEGATIVE) 11/27/18 04:20 U Cocaine Metab Screen NEGATIVE (NEGATIVE) 11/27/18 04:20 U Cannabinoids Screen NEGATIVE (NEGATIVE) 11/27/18 04:20 ED Assessment - Assessment General Assessment: Methamphetamine abuse Auditory hallucination Suicidal ideation Schizophrenia Assessment/Comments:: CBC, CMP, UA, urine drug screen ED Septic Shock - . Is Septic Shock (SBP<90, OR Lactate>4 mmol\\L) present?: No - <6hrs of presentation: Vital Signs: Vital Signs - 8 hr 11/26/18 23:20 Temp 98.1 F HR 89 RR 18 BP 136/77 O2 Sat % 99 ED Reassessment (Disposition) - Reassessment Reassessment:: Pt is medically cleared for psychsocial evaluation. Dr. Hernandez assumed care at 07:00 Reassessment Condition:: Unchanged
[2018-11-27 02:06] LABS: % BASOPHILS 0.6 % (0.0-2.0); % EOSINOPHILS 4.6 % (0.0-5.0); % LYMPHOCYTES 28.5 % (20.0-50.0); % MONOCYTES 10.6 % (2.0-10.0); % NEUTROPHILS 55.7 % (40.0-80.0); BASOPHILE ABSOLUTE 0.1 Th/cumm (0-0.2); EOSINOPHILE ABSOLUTE 0.4 Th/cmm (0.1-0.4); HEMATOCRIT 48.3 % (41.0-60); HEMOGLOBIN 15.9 gm/dL (12-16); LYMPHOCYTE ABSOLUTE 2.7 Th/cmm (1.5-3.0); MEAN CELL VOLUME 92.8 fl (80-99); MEAN CORPUSCULAR HEMOGLOBIN 30.6 pg (26.0-30.0); MEAN CORPUSCULAR HGB CONC 32.9 pg (28.0-36.0); MEAN PLATELET VOLUME 6.6 fl; NEUTROPHILE ABSOLUTE 5.3 Th/cmm (1.8-8.0); PLATELET COUNT 285 Th/cmm (150-400); RED BLOOD COUNT 5.21 Mil/cmm (4.30-5.70); RED CELL DISTRIBUTION WIDTH 11.9 % (11.5-20.0); WHITE BLOOD COUNT 9.5 Th/cmm (4.8-10.8)
[2018-11-27 02:22] LABS: ALB/GLOB RATIO 1.5 (1.0-1.8); ALBUMIN 4.4 gm/dL (4.2-5.5); ALKALINE PHOSPHATASE 114 U/L (34-104); ANION GAP 10.8 (7.0-16.0); BILIRUBIN,TOTAL 0.4 mg/dL (0.3-1.0); BUN - UREA NITROGEN 12 mg/dL (7-25); CALCIUM SERUM 9.5 mg/dL (8.6-10.3); CARBON DIOXIDE 28.3 mEq/L (21.0-31.0); CHLORIDE 104 mEq/L (98-107); CREATININE - SERUM 0.8 mg/dL (0.7-1.3); GFR AFRICAN-AMERICAN > 60.0 ml/min (>90); GFR NON AFRICAN-AMERICAN > 60.0 ml/min; GLUCOSE 82 mg/dL (70-105); POTASSIUM SERUM 4.1 mEq/L (3.5-5.1); SGOT 31 U/L (13-39); SGPT/ALT 26 U/L (7-52); SODIUM SERUM 139 mEq/L (136-145); TOTAL PROTEIN,SERUM 7.3 gm/dL (6.0-8.3)
[2018-11-27 06:20] LABS: URINE SOURCE CLEAN C
[2018-11-27 06:25] LABS: URINE BILIRUBIN NEGATIVE (NEGATIVE); URINE BLOOD NEGATIVE (NEGATIVE); URINE GLUCOSE (UA) NEGATIVE (NEGATIVE); URINE KETONE NEGATIVE (NEGATIVE); URINE LEUKOCYTE ESTERASE NEGATIVE (NEGATIVE); URINE MICROSCOPIC INDICATED? YES; URINE NITRATE NEGATIVE (NEGATIVE); URINE PROTEIN TRACE mg/dL (NEGATIVE)
[2018-11-27 06:36] LABS: AMPHETAMINE URINE POSITIVE (NEGATIVE); BARBITURATES URINE NEGATIVE (NEGATIVE); BENZODIAZEPINES QUAL URINE NEGATIVE (NEGATIVE); CANNABINOID THC NEGATIVE (NEGATIVE); COCAINE METABOLITE QUAL URINE NEGATIVE (NEGATIVE); METHADONE URINE NEGATIVE (NEGATIVE); METHAMPHETAMINES QUAL URINE POSITIVE (NEGATIVE); OPIATES (MORPHINE) QUAL. URINE NEGATIVE (NEGATIVE); PHENCYCLIDINE (PCP) URINE NEGATIVE (NEGATIVE); TRICYCLICS (TCA) QUAL. URINE NEGATIVE (NEGATIVE)
[2018-11-27 07:03] LABS: URINE COLOR YELLOW
[2018-11-27 07:04] LABS: URINE CLARITY SLIGHTLY HAZY (CLEAR)
[2018-11-27 07:22] LABS: URINE AMORPHOUS SEDIMENT MANY URATES (NONE SEEN); URINE BACTERIA NONE SEEN /hpf (NONE SEEN); URINE EPITHELIAL CELLS RARE /lpf (FEW); URINE RBC 0-2 /hpf (0-5); URINE WBC 0-2 /hpf (0-5)
== END 2018-11-27 11:20 | disposition home or self-care (01) ==
LOC: ER 22:58
DX: T16.2XXA Foreign body in left ear, initial encounter (principal); T16.1XXA Foreign body in right ear, initial encounter; F20.9 Schizophrenia, unspecified; F15.10 Other stimulant abuse, uncomplicated; R45.851 Suicidal ideations; F17.200 Nicotine dependence, unspecified, uncomplicated; X58.XXXA Exposure to other specified factors, initial encounter; Y93.89 Activity, other specified; Y92.89 Other specified places as the place of occurrence of the external cause; Y99.8 Other external cause status
CPT/HCPCS: 36415-UA; 80053-TC; 80307; 81001-TC; 83880-TC; 84443-TC; 84484-TC; 85025-TC; Z7502

== ENCOUNTER 2018-11-29 20:54 | Emergency (ER) | payer MEDICAID ==
--- NOTE | 2018-11-29 21:39 | ED Physician Chart ---
ED Chief Complaint/HPI - Patient Information Date Seen:: 11/29/18 Time Seen:: 21:36 Chief Complaint:: suicidal ideation History of Present Illness:: 33 yr old male with suicidal ideation Allergies:: Allergies Allergy/AdvReac Type Severity Reaction Status Date / Time No Known Allergies Allergy Verified 06/12/18 14:35 Vitals:: Vital Signs - 8 hr 11/29/18 21:00 Temp 97.9 F HR 112 RR 18 BP 127/82 O2 Sat % 98 ED Past Medical History - Past Medical History Past Medical History: No significant medical hx Family Medical History - Family Member Mother History Unknown: Yes Ethnicity: Non- Hx Family Cancer: No Hx Family Coronary Artery Disease: No Hx Family Congestive Heart Failure: No Hx Family Hypertension: No Hx Family Stroke: No Hx Family Diabetes: No Hx Family Seizures: No Hx Family Dementia: No Hx Family AIDS: No Hx Family HIV: No Hx Family COPD: No Hx Family Hepatitis: No Hx Family Psychiatric Problems: Yes Hx Family Tuberculosis: No Father History Unknown: Yes ED Physical Exam - Physical Examination General/Constitutional: Awake, Well-developed, well-nourished, Alert, No distress, GCS 15, Non-toxic appearing, Ambulatory Head: Atraumatic Eyes: Lids, conjuctiva normal, PERRL, EOMI Skin: Nl inspection, No rash, No skin lesions, No ecchymosis, Well hydrated, No lymphadenopathy ENMT: External ears, nose nl, Nasal exam nl, Lips, teeth, gums nl Neck: Nontender, Full ROM w/o pain, No JVD, No nuchal rigidity, No bruit, No mass, No stridor Respiratory: Nl effort/Exclusion, Clear to Auscultation, No Wheeze/Rhonchi/Rales Cardio Vascular: RRR, No murmur, gallop, rubs, NL S1 S2 GI: No tenderness/rebounding/guarding, No organomegaly, No hernia, Normal BS's, Nondistended, No mass/bruits, No McBurney tenderness : No CVA tenderness Extremities: No tenderness or effusion, Full ROM, normal strength in all extremities, No edema, Normal digits & nails Neuro/Psych: Alert/oriented, DTR's symmetric, Normal sensory exam, Normal motor strength, Judgement/insight normal, Mood normal, Normal gait, No focal deficits Misc: Normal back, No paraspinal tenderness ED Assessment - Assessment General Assessment: suicidal ideation ED Septic Shock - . Is Septic Shock (SBP<90, OR Lactate>4 mmol\L) present?: No - <6hrs of presentation: Vital Signs: Vital Signs - 8 hr 11/29/18 21:00 Temp 97.9 F HR 112 RR 18 BP 127/82 O2 Sat % 98 ED Reassessment (Disposition) - Reassessment Reassessment:: suicidal ideation - Diagnosis Diagnosis:: suicidal ideation - Patient Disposition Admitted to:: Med/Surg Condition at Disposition:: Stable
[2018-11-29 22:08] LABS: % BASOPHILS 0.7 % (0.0-2.0); % EOSINOPHILS 2.7 % (0.0-5.0); % MONOCYTES 7.7 % (2.0-10.0); % NEUTROPHILS 55.9 % (40.0-80.0); BASOPHILE ABSOLUTE 0.1 Th/cumm (0-0.2); EOSINOPHILE ABSOLUTE 0.2 Th/cmm (0.1-0.4); HEMOGLOBIN 15.7 gm/dL (12-16); LYMPHOCYTE ABSOLUTE 2.8 Th/cmm (1.5-3.0); MEAN CELL VOLUME 91.6 fl (80-99); MEAN CORPUSCULAR HEMOGLOBIN 30.7 pg (26.0-30.0); MEAN CORPUSCULAR HGB CONC 33.5 pg (28.0-36.0); MEAN PLATELET VOLUME 6.7 fl; MONOCYTE ABSOLUTE 0.7 Th/cmm (0.3-1.0); NEUTROPHILE ABSOLUTE 4.8 Th/cmm (1.8-8.0); PLATELET COUNT 303 Th/cmm (150-400); RED BLOOD COUNT 5.13 Mil/cmm (4.30-5.70); RED CELL DISTRIBUTION WIDTH 11.9 % (11.5-20.0); WHITE BLOOD COUNT 8.6 Th/cmm (4.8-10.8)
[2018-11-29 22:25] LABS: ALB/GLOB RATIO 1.6 (1.0-1.8); ALBUMIN 4.2 gm/dL (4.2-5.5); ALKALINE PHOSPHATASE 113 U/L (34-104); ANION GAP 12.1 (7.0-16.0); BILIRUBIN,TOTAL 0.4 mg/dL (0.3-1.0); BUN - UREA NITROGEN 10 mg/dL (7-25); CALCIUM SERUM 9.4 mg/dL (8.6-10.3); CARBON DIOXIDE 26.5 mEq/L (21.0-31.0); CHLORIDE 106 mEq/L (98-107); CREATININE - SERUM 0.7 mg/dL (0.7-1.3); GFR AFRICAN-AMERICAN > 60.0 ml/min (>90); GFR NON AFRICAN-AMERICAN > 60.0 ml/min; GLUCOSE 112 mg/dL (70-105); POTASSIUM SERUM 3.6 mEq/L (3.5-5.1); SGOT 21 U/L (13-39); SGPT/ALT 22 U/L (7-52); SODIUM SERUM 141 mEq/L (136-145); TOTAL PROTEIN,SERUM 6.9 gm/dL (6.0-8.3)
[2018-11-30 04:49] LABS: URINE SOURCE CLEAN C
[2018-11-30 04:59] LABS: URINE BILIRUBIN NEGATIVE (NEGATIVE); URINE BLOOD NEGATIVE (NEGATIVE); URINE GLUCOSE (UA) NEGATIVE (NEGATIVE); URINE KETONE TRACE mg/dL (NEGATIVE); URINE LEUKOCYTE ESTERASE NEGATIVE (NEGATIVE); URINE NITRATE NEGATIVE (NEGATIVE); URINE PROTEIN NEGATIVE (NEGATIVE); URINE UROBILINOGEN 0.2 E.U./dL (0.2 - 1.0)
[2018-11-30 05:33] LABS: URINE COLOR YELLOW
[2018-11-30 05:34] LABS: URINE CLARITY CLEAR (CLEAR)
[2018-11-30 05:35] LABS: URINE MICROSCOPIC INDICATED? YES
[2018-11-30 05:48] LABS: AMPHETAMINE URINE POSITIVE (NEGATIVE); BARBITURATES URINE NEGATIVE (NEGATIVE); BENZODIAZEPINES QUAL URINE NEGATIVE (NEGATIVE); CANNABINOID THC NEGATIVE (NEGATIVE); COCAINE METABOLITE QUAL URINE NEGATIVE (NEGATIVE); METHADONE URINE NEGATIVE (NEGATIVE); METHAMPHETAMINES QUAL URINE NEGATIVE (NEGATIVE); OPIATES (MORPHINE) QUAL. URINE NEGATIVE (NEGATIVE); PHENCYCLIDINE (PCP) URINE NEGATIVE (NEGATIVE); TRICYCLICS (TCA) QUAL. URINE NEGATIVE (NEGATIVE)
[2018-11-30 05:53] LABS: URINE BACTERIA N /hpf (NONE SEEN); URINE EPITHELIAL CELLS NONE SEEN /lpf (FEW); URINE RBC NONE SEEN /hpf (0-5); URINE WBC NONE SEEN /hpf (0-5)
--- NOTE | 2018-12-01 03:24 | Consultation ---
DATE OF CONSULTATION: 11/30/2018 The patient was seen, chart reviewed, discussed with staff. HISTORY OF PRESENT ILLNESS: The patient is a 33-year-old male with a history of mental illness and substance abuse, presents to the ER, reports hearing voices. Initially, he was having some thoughts about running into traffic, said he was using some meth, has started becoming more paranoid, hearing voices, feeling anxious, but he feels safe now as he is in the hospital. So, the patient at this time does not have any suicidal thoughts. Said, he received his Invega Sustenna recently and he also used to take Seroquel and he did not have a prescription and he would like to get back on his medication. PAST PSYCHIATRIC HISTORY: Prior hospitalization, history of mental illness. PSYCHOSOCIAL HISTORY: The patient said he is on the streets at this time. SUBSTANCE ABUSE HISTORY: Significant for methamphetamine and marijuana use. Urine tox screen is positive for meth. MENTAL STATUS EXAMINATION: The patient is cooperative, made fair eye contact. Speech is fluent, not pressured. Affect is slightly guarded, intermittent auditory hallucinations. No suicidal thoughts at this time. He is oriented x 3. ASSESSMENT: Schizoaffective disorder and methamphetamine abuse. PLAN: We will restart the patient on Seroquel 100 mg at bedtime. Monitor condition closely and consider outpatient followup in the next 1-2 days and further if hallucinations subsides down. Thank you for the consultation. JOB# [id number]
[2018-12-02] MEDS ORDERED: Albuterol Nebulizer 2.5mg/3mL HHN STA (08:55)
[2018-12-02] MEDS ORDERED: cefTRIAXone 1 GM in Sodium Chloride 0.9% 50 ML IV ONE (09:07)
--- NOTE | 2018-12-02 09:17 | Diagnostic Imaging Report ---
Portable chest x-ray History: Cough Allowing for portable technique the heart size is normal. No focal pulmonary parenchymal processes. No hilar or mediastinal abnormalities. Impression: No acute abnormalities.
[2018-12-02] MEDS ORDERED: Albuterol Nebulizer 2.5mg/3mL HHN ONE (09:21)
[2018-12-02 09:54] LABS: INF A SCREEN NEG FOR INF A; INF B SCREEN NEG FOR INF B
== END 2018-12-02 14:15 ==
LOC: ER 20:54
DX: F15.10 Other stimulant abuse, uncomplicated (principal); R45.851 Suicidal ideations; Z59.0 Homelessness
CPT/HCPCS: 99285; 36415; 80307; 87804 ×2; 85025; 81001; 80320; 80053; 87040 ×2; 94640; 71045; J0696; J7613; X6118; Z7610